=== PATIENT | male | born 1950 | race Hispanic/Latino ===

== ENCOUNTER 2020-07-24 10:54 | Day surgery (SDC) | payer OTHER ==
[2020-07-23 12:31] LABS: Absolute Lymphocytes (CBC) 2.4 K/uL (0.7-4.9); Basophils % 0.7 % (0-1.3); Hematocrit 38.6 % (39.6-49.0); Lymphocytes % 38.9 % (15.3-44.8); MPV 8.5 fL (7.6-11.3); RBC Red Blood Cell Count 4.16 M/uL (4.33-5.43)
--- NOTE | 2020-07-23 12:43 | RAD REPORT ---
EXAM DESCRIPTION: RAD - Chest Pa And Lat (2 Views) - 07/23/2020 12:33 pm CLINICAL HISTORY: PREOP, SAME DAY SURGERY, ROOM 7 Chest pain. COMPARISON: No comparisons FINDINGS: The lungs are clear. The heart is mildly prominent size. No displaced fractures.
[2020-07-24] MEDS ORDERED: NA CHLORIDE 0.9% 1,000 ML ONE (11:22)
[2020-07-24] MEDS ORDERED: CIPROFLOXACIN 400mg IV 400 MG/200 ML BAG IV ONE (11:22)
[2020-07-24] MEDS ORDERED: propofoL 200 MG/20 ML VIAL IV ONE (12:40)
[2020-07-24] MEDS ORDERED: MIDAZOLAM HCL 2 MG/2 ML INJ ONE (12:40)
[2020-07-24] MEDS ORDERED: FENTANYL CITR 100 MCG/2 ML ONE (12:41)
[2020-07-24] MEDS ORDERED: ONDANSETRON 4 MG/2 ML VIAL ONE (12:42)
[2020-07-24] MEDS ORDERED: EPHEDRINE SULF 50 MG/ML VIAL ONE (13:09)
--- NOTE | 2020-07-24 13:19 | P.BOP ---
Preoperative diagnosis: infected lower back subQ mass Postoperative diagnosis: same, plus abscess Primary procedure: Wide excision of infected lower back subQ mass 5x4 cm Secondary procedure: with abscess drainage Estimated blood loss: <10cc Specimen: mass Findings: mass and abscess Anesthesia: General Complications: None Transferred to: Recovery Room Condition: Good
[2020-07-24 13:32] VITALS: TEMP 96.8
[2020-07-24 15:11] VITALS: BP 118/75; O2SAT 99
--- NOTE | 2020-07-24 21:24 | OP ---
Date of Procedure: 07/24/2020 Surgeon: Scar New MD Preoperative Diagnosis: Infected lower back subcutaneous mass. Postoperative Diagnosis: Infected lower back subcutaneous mass plus abscess. Procedure: Wide excision of infected lower back subcutaneous mass, 5 x 4 cm, with drainage of an abs cess. Estimated Blood Loss: Less than 10 mL. Specimens: Mass. Findings: Mass and abscess. Anesthesia: General plus local. Indications: This is a case of a male who comes to us with a mass in the lower back, now a red, warm , and tender, infected lower back subcutaneous mass diagnosed with benefits, alternatives, and risks of excision and drainage of the infection fully explained which include, but not limited to infection , bleeding, damage to adjacent structures, anesthesia complication, recurrence, ME, and even . He also understands this may not relieve any symptoms. He might need more than one surgical interven tion. He understood, signed a consent. He understands that he may have to do home health agency to order at home somebody to do dressing changes. He want home health agencies, that was arranged [facility]. He understands he will need to do dressing changes. Description Of Procedure: The patient's area was marked by me and the patient in the holding room. The patient was brought to the operating room and placed in supine position. Anesthesia was done wit hout complication. The patient was placed in lateral decubitus position with proper protection. The lower back area was prepped and draped in sterile fashion. Local anesthesia was applied followed by wide excision of the infected area and devitalized tissue that get us into a mass and underneath the mass or deep to the mass, there is an abscess. Loculations were opened, mass was excised, and hemos tasis obtained. We irrigated the area and then packed with dry dressing. The patient tolerated the procedure well. The patient was sent to Recovery in stable condition. Disposition: Home. Activity: As tolerated. No heavy lifting. Plan: Follow up in my office in 1 week. Call for appointment at [phone]. The patient will continu e with his antibiotics. We are going to given him Tylenol No. 3 q.4 hours p.r.n. pain and normal ramandeep ine for dressing changes. CHANA/TRANG Voice ID: [id number] Report ID: [id number]
== END 2020-07-24 15:15 | disposition home or self-care (01) ==
LOC: OR 10:54
PROVIDERS: ATTEND Surgery
PROC: 0JB70ZZ Excision of Back Subcutaneous Tissue and Fascia, Open Approach (ICD-10-PCS; principal; 2020-07-24 13:45)
DX: L72.0 Epidermal cyst (principal); L03.312 Cellulitis of back [any part except buttock and flank]; E11.9 Type 2 diabetes mellitus without complications; G20 Parkinson's disease; G62.9 Polyneuropathy, unspecified; Z20.828 Contact with and (suspected) exposure to other viral communicable diseases
CPT/HCPCS: 93005; 87070; 85025; 80048; 36415; 87205; 82947 ×2; 88305; 87075; 71046; 11406; J2704; J2250; J3010; J7030; J2405; J0744; U0002

== ENCOUNTER 2023-05-18 19:54 | Emergency (ER) | payer OTHER ==
--- OUTSIDE RECORDS SUMMARY | 2023-05-18 20:00 | XMS REPORT | Continuity of Care Document ---
:[address] [facility] Address [address] [place] [address] [address] [place] [address] Care Team Providers Name Role Phone Asked, No Pcp Primary Care Physician Unavailable Evangelist Espana MD Attending Clinician EVANGELIST ESPANA Attending Clinician Unavailable Rustam Moreno MD Attending Clinician Monique Comer CRNA Attending Clinician [phone] Virtual, Surgeon Attending Clinician Unavailable Doctor Unassigned, [place] Attending Clinician Unavailable Jose Mariee Attending Clinician JOSE IVERSON Attending Clinician Unavailable EVANGELIST ESPANA Admitting Clinician Unavailable Payers Payer Name Policy Type Policy Number Effective Date Expiration Date S ource Problems Condition Condition Condition Status Onset Resolution Last Treating Co mments Source Name Details Category Date Date Treatment Clinician Date No known No known Disease Unive rs active active ity of problems problems [facility] Allergies, Adverse Reactions, Alerts Allergy Allergy Status Severity Reaction(s) Onset Inactive Treating Comm ents Source Name Type Date Date Clinician [facility] Allergy Active High Hives [facility] Drug Active Hives, [facility] Rash 00:[facility]: [facility] 00 Center [place] Drug Active Hives, [facility] Rash 00:[facility]: Medical 00 Center [place] DRUG Active Hives 1954- Univers IN INGREDI 4- ity of 00:00: [place] 00 Medical Branch [place] Propensi Active Rash 1954-0 Univer s in ty to -13 ity of adverse 00:00: [place] reaction 00 Medical s Branch NO KNOWN Drug Active Univers ALLERGIE Class ity of S [facility] Social History Social Habit Start Date Stop Date Quantity Comments Source History [facility] University o f Alcohol Std Drinks [place] [facility] Weyerhaeuser History On license of [facility] o f Alcohol Binge [place] [facility] Weyerhaeuser Gender identity [facility] Sexual orientation [facility] Alcohol intake 2022-09-27 2022-09-27 Ex-drinker [facility] 00:[facility]00 00:00:00 (finding) Medical Center Exposure to 2022-07-18 2022-07-[address] [facility] SARS-CoV-2 (event) 00:00:00 14:00[facility]00 [facility] Tobacco use and 2022-07-28 2022-07-[address] [facility] k[facility] exposure 00:00:00 00:00:00 tobacco non-user Medical Center History [facility] 2021-04-29 2021-04-29 1 University o f Alcohol Frequency 00:00:00 00:00:00 [facility] Sex Ass[birth year] At [birth year] [facility] Smoking Status Start Date Stop Date Source Tobacco smoking consumption unknown [facility] smoked [facility] Medications Ordered Filled Start Stop Current Ordering Indication Dosage Frequency Signature Comments Components Source Medication Medication Date Date Medication? Clinician (SIG) Name Name gabapentin Yes 300mg Q.5D Take [address] (NEURONTIN) 1-23 mg by [facility] 300 MG 14:59: mouth 2 Medical capsule 46 (two) Center times daily. metFORMIN Yes 750mg Q.5D Take [address] (GLUCOPHAGE 1-23 mg by [facility] -XR) 750 MG 14:59: mouth 2 Med ical 24 hr 46 (two) Center tablet times daily. montelukast Yes 10mg QD Take [address] (SINGULAIR) 1-23 by mouth Luke s 10 mg 14:59: daily. Medical tablet 46 Center omeprazole 0 Yes 40mg QD Take [address] (PriLOSEC) 1-23 by mouth [facility] 40 MG 14:59: daily. Medical capsule 46 [place] rosuvastati 0 Yes 5mg QD Take [address] n (CRESTOR) 1-23 by mouth Luke s 5 MG tablet 14:59: daily. [address] carbidopa-l 2022-0 Yes Q.25D Take by [facility] evodopa 1-23 mouth 4 [facility] (Rytary) 14:59: (four) Medical 36.25-145 46 times Center mg CpER daily. aspirin 81 0 Yes 81mg QD Take [address] MG EC 1-23 by mouth [facility] tablet 14:59: daily. [address] gabapentin 0 Yes 300mg Q.5D Take [address] (NEURONTIN) 1-23 mg by [facility] 300 MG 14:59: mouth 2 Medical capsule 46 (two) Center times daily. metFORMIN 0 Yes 750mg Q.5D Take [address] (GLUCOPHAGE 1-23 mg by [facility] -XR) 750 MG 14:59: mouth 2 Med ical 24 hr 46 (two) Center tablet times daily. montelukast 0 Yes 10mg QD Take [address] (SINGULAIR) 1-23 by mouth Luke s 10 mg 14:59: daily. Medical tablet 46 [place] omeprazole 0 Yes 40mg QD Take [address] (PriLOSEC) 1-23 by mouth [facility] 40 MG 14:59: daily. Medical capsule [address] [place] [address] rosuvastati 0 Yes 5mg QD Take [address] n (CRESTOR) 1-23 by mouth Luke s 5 MG tablet 14:59: daily. [address] carbidopa-l 2022-0 Yes Q.25D Take by [facility] evodopa 1-23 mouth 4 [facility] (Rytary) 14:59: (four) Medical 36.25-145 46 times Center mg CpER daily. aspirin 81 2022-0 Yes 81mg QD Take [address] MG EC 1-23 by mouth [facility] tablet 14:59: daily. [address] gabapentin 0 Yes 300mg Q.5D Take [address] (NEURONTIN) 1-23 mg by [facility] 300 MG 14:59: mouth 2 Medical capsule 46 (two) Center times daily. metFORMIN Yes 750mg Q.5D Take [address] (GLUCOPHAGE 1-23 mg by [facility] -XR) 750 MG 14:59: mouth 2 Med ical 24 hr 46 (two) Center tablet times daily. montelukast Yes 10mg QD Take [address] (SINGULAIR) 1-23 by mouth Luke s 10 mg 14:59: daily. Medical tablet 46 Center omeprazole Yes 40mg QD Take [address] (PriLOSEC) 1-23 by mouth [facility] 40 MG 14:59: daily. Medical capsule 46 [place] rosuvastati Yes 5mg QD Take [address] n (CRESTOR) 23 by mouth Luke s 5 MG tablet 14:59: daily. [facility] xochilt 46 [place] carbidopa-l Yes Q.25D Take by [facility] evodopa 11-28 mouth 4 [facility] (Rytary) 14:59: (four) Medical 36.25-145 46 times Center mg CpER daily. aspirin 81 Yes 81mg QD Take [address] MG EC 11-28 by mouth [facility] tablet 14:59: daily. [address] gabapentin 2021-11 Yes 300mg Q.5D Take [address] (NEURONTIN) 1-07 mg by [facility] 300 MG 09:43: mouth 2 Medical capsule 33 (two) Center times daily. metFORMIN 2021-11 Yes 750mg Q.5D Take [address] (GLUCOPHAGE 1-07 mg by [facility]ukes -XR) 750 MG 09:43: mouth 2 Med ical 24 hr 33 (two) Center tablet times daily. montelukast 2021-11 Yes 10mg QD Take [address] (SINGULAIR) 1-07 by mouth Luke s 10 mg 09:43: daily. Medical tablet 33 Center omeprazole 2021-11 Yes 40mg QD Take [address] (PriLOSEC) 1-07 by mouth [facility] 40 MG 09:43: daily. Medical capsule 33 [place] rosuvastati 2021-11 Yes 5mg QD Take [address] n (CRESTOR) 1-07 by mouth Luke s 5 MG tablet 09:43: daily. [address] carbidopa-l 2021-11 Yes Q.25D Take by [facility] evodopa 1-07 mouth 4 [facility] (Rytary) 09:43: (four) Medical 36.25-145 33 times Center mg CpER daily. aspirin 81 2021-11 Yes 81mg QD Take [address] MG EC 1-07 by mouth [facility] tablet 09:43: daily. [address] gabapentin 2021-11 Yes 300mg Q.5D Take [address] (NEURONTIN) 1-07 mg by [facility] 300 MG 09:43: mouth 2 Medical capsule 33 (two) Center times daily. metFORMIN 2021-11 Yes 750mg Q.5D Take [address] (GLUCOPHAGE 1-07 mg by [facility]ukes -XR) 750 MG 09:43: mouth 2 Med ical 24 hr 33 (two) Center tablet times daily. montelukast 2021-11 Yes 10mg QD Take [address] (SINGULAIR) 1-07 by mouth Luke s 10 mg 09:43: daily. Medical [address] omeprazole 2021-11 Yes 40mg QD Take [address] (PriLOSEC) 1-07 by mouth [facility] 40 MG 09:43: daily. Medical [address] rosuvastati 2021-11 Yes 5mg QD Take [address] n (CRESTOR) 1-07 by mouth Luke s 5 MG tablet 09:43: daily. [address] carbidopa-l 2021-11 Yes Q.25D Take by [facility] evodopa 1-07 mouth 4 [facility] (Rytary) 09:43: (four) Medical 36.25-145 33 times Center mg CpER daily. aspirin 81 2021-11 Yes 81mg QD Take [address] MG EC 1-07 by mouth [facility] tablet 09:43: daily. [address] gabapentin 2021-11 Yes 300mg Q.5D Take [address] (NEURONTIN) 1-07 mg by [facility] 300 MG 09:43: mouth 2 Medical capsule 33 (two) Center times daily. metFORMIN 2021-11 Yes 750mg Q.5D Take [address] (GLUCOPHAGE 1-07 mg by [facility]ukes -XR) 750 MG 09:43: mouth 2 Med ical 24 hr 33 (two) Center tablet times daily. montelukast 2021-11 Yes 10mg QD Take [address] (SINGULAIR) 1-07 by mouth Luke s 10 mg 09:43: daily. Medical tablet 33 [place] omeprazole 2021-11 Yes 40mg QD Take [address] (PriLOSEC) 1-07 by mouth [facility] 40 MG 09:43: daily. Medical capsule 33 [place] rosuvastati 2021-11 Yes 5mg QD Take [address] n (CRESTOR) 1-07 by mouth Luke s 5 MG tablet 09:43: daily. [address] carbidopa-l 2021-11 Yes Q.25D Take by [facility] evodopa -07 mouth 4 [facility] (Rytary) 09:43: (four) Medical 36.25-145 33 times Center mg CpER daily. aspirin 81 2021-11 Yes 81mg QD Take [address] MG EC 07 by mouth [facility] tablet 09:43: daily. [address] gabapentin Yes 300mg Q.5D Take [address] (NEURONTIN) 9-22 mg by [facility] 300 MG 17:18: mouth 2 Medical capsule 02 (two) Center times daily. metFORMIN Yes 750mg Q.5D Take [address] (GLUCOPHAGE 9-22 mg by [facility]ukes -XR) 750 MG 17:18: mouth 2 Med ical 24 hr 02 (two) Center tablet times daily. montelukast Yes 10mg QD Take [address] (SINGULAIR) 9-22 by mouth Luke s 10 mg 17:18: daily. Medical tablet 02 [place] omeprazole Yes 40mg QD Take [address] (PriLOSEC) 9-22 by mouth [facility] 40 MG 17:18: daily. Medical capsule [address] [place] [address] rosuvastati Yes 5mg QD Take [address] n (CRESTOR) 9-22 by mouth Luke s 5 MG tablet 17:18: daily. [address] carbidopa-l Yes Q.25D Take by [facility] evodopa 9-22 mouth 4 [facility] (Rytary) 17:18: (four) Medical 36.25-145 02 times Center mg CpER daily. aspirin 81 2021-0 Yes 81mg QD Take [address] MG EC 9-22 by mouth [facility] tablet 17:18: daily. [address] gabapentin 2021-0 Yes 300mg Q.5D Take [address] (NEURONTIN) 9-22 mg by [facility] 300 MG 17:18: mouth 2 Medical capsule 02 (two) Center times daily. metFORMIN 2021-0 Yes 750mg Q.5D Take [address] (GLUCOPHAGE 9-22 mg by Lukes -XR) 750 MG 17:18: mouth 2 Med ical 24 hr 02 (two) Center tablet times daily. montelukast 0 Yes 10mg QD Take [address] (SINGULAIR) 9-22 by mouth Luke s 10 mg 17:18: daily. Medical tablet 02 [place] omeprazole 0 Yes 40mg QD Take [address] (PriLOSEC) 9-22 by mouth [facility]ukes 40 MG 17:18: daily. Medical capsule [address] [place] [address] rosuvastati 0 Yes 5mg QD Take [address] n (CRESTOR) 9- by mouth Luke s 5 MG tablet 17:18: daily. Medi xochilt 02 [place] carbidopa-l 0 Yes Q.25D Take by [facility] evodopa 9- mouth 4 [facility] (Rytary) 17:18: (four) Medical 36.25-145 02 times Center mg CpER daily. aspirin 81 0 Yes 81mg QD Take [address] MG EC 9-22 by mouth [facility]ukes tablet 17:18: daily. [address] gabapentin 2021-0 Yes 300mg Q.5D Take [address] (NEURONTIN) 9-22 mg by [facility] 300 MG 17:18: mouth 2 Medical capsule 02 (two) Center times daily. metFORMIN 2021-0 Yes 750mg Q.5D Take [address] (GLUCOPHAGE 9-22 mg by [facility]ukes -XR) 750 MG 17:18: mouth 2 Med ical 24 hr 02 (two) Center tablet times daily. montelukast 0 Yes 10mg QD Take [address] (SINGULAIR) 9-22 by mouth Luke s 10 mg 17:18: daily. Medical tablet 02 Center omeprazole 2021-0 Yes 40mg QD Take [address] (PriLOSEC) 07-28 by mouth [facility] 40 MG 17:18: daily. Medical capsule 02 [place] rosuvastati Yes 5mg QD Take [address] n (CRESTOR) 07-28 by mouth Luke s 5 MG tablet 17:18: daily. Medi xochilt 02 [place] carbidopa-l Yes Q.25D Take by [facility] evodopa 07-28 mouth 4 [facility] (Rytary) 17:18: (four) Medical 36.25-145 02 times Center mg CpER daily. aspirin 81 Yes 81mg QD Take [address] MG EC 07-28 by mouth [facility] tablet 17:18: daily. [address] triamcinolo 2020- No [id number] 40mg Univers ne 04-29 ity of acetonide 17:30: 16:17 [place] (KENALOG) 00 :00 Medical injection Branch 40 mg triamcinolo 2020- No [id number] 40mg 40 mg, Univers ne 04-29 Intramuscu ity of acetonide 17:30: 16:17 [place], [place]CE, [place] (KE[place]LOG[place] 00 :00 1 dose, Medical injection Mary [facility] Branch 40 mg 04/29/21 at 1230, Routine triamcinolo 2020- No [id number] 40mg Univers ne 04-29 ity of acetonide 17:30: 16:17 [place] (KENALOG) 00 :00 Medical injection Branch 40 mg triamcinolo 2020- No [id number] 40mg 40 mg, Univers ne 04-29 Intramuscu ity of acetonide 17:30: 16:17 [place], [place]CE, [place] (KE[place]LOG) 00 :00 1 dose, Medical injection [facility] Branch 40 mg 04/29/21 at 1230, Routine carbidopa-l Yes Univer s evodopa 6-05 ity of 25-100 mg 00:00: [place] tablet 00 Medical Branch rosuvastati Yes Univer s n 5 mg 6-05 ity of tablet 00:00: [place] 00 [facility] Branch carbidopa-l Yes Univer s evodopa 6-05 ity of 25-100 mg 00:00: [place] tablet 00 Medical Branch rosuvastati 0 Yes Univer s n 5 mg 6-05 ity of tablet 00:00: [place] Medical Branch carbidopa-l 0 Yes Univer s evodopa 6-05 ity of 25-100 mg 00:00: [place] tablet Medical Branch rosuvastati 0 Yes Univer s n 5 mg 6-05 ity of tablet 00:00: [place] Medical Branch carbidopa-l 0 Yes Univer s evodopa 6-05 ity of 25-100 mg 00:00: [place] tablet 00 Medical Branch rosuvastati Yes Univer s n 5 mg 6-05 ity of tablet 00:00: [place] Medical Branch carbidopa-l Yes Univer s evodopa 6-05 ity of 25-100 mg 00:00: [place] tablet Medical Branch rosuvastati Yes Univer s n 5 mg 6-05 ity of tablet 00:00: [place] Medical Branch carbidopa-l 0 Yes Univer s evodopa 6-05 ity of 25-100 mg 00:00: [place] tablet Medical Branch rosuvastati 0 Yes Univer s n 5 mg 6-05 ity of tablet 00:00: [place] Medical Branch carbidopa-l 0 Yes [facility] s evodopa 6-05 ity of 25-100 mg 00:00: [place] tablet Medical Branch rosuvastati 2020-0 Yes Univer s n 5 mg 6-05 ity of tablet 00:00: [place] [facility] metformin 2020-0 Yes Univers ER 750 mg 5-09 ity of 24 hr 00:00: [place] tablet 00 Medical Branch metformin 2020-0 Yes Univers ER 750 mg 5-09 ity of 24 hr 00:00: [place] tablet Medical Branch metformin 2020-0 Yes Univers ER 750 mg 5-09 ity of 24 hr 00:00: [place] tablet Medical Branch metformin 2020-0 Yes Univers ER 750 mg 5-09 ity of 24 hr 00:00: [place] tablet 00 Medical Branch metformin 2020-0 Yes Univers ER 750 mg 5-09 ity of 24 hr 00:00: [place] tablet 00 Medical Branch metformin 2021-0 Yes Univers ER 750 mg 5-09 ity of 24 hr 00:00: [place] tablet 00 Medical Branch metformin 2021-0 Yes Univers ER 750 mg 5-09 ity of 24 hr 00:00: [place] tablet 00 Medical Branch omeprazole 2015-0 Yes Univers 40 mg 4-13 ity of capsule 00:00: [place] 00 Medical Branch gabapentin 2015-0 Yes Univers 300 mg 4-13 ity of capsule 00:00: [place] [facility] fluticasone 2015-0 Yes Univer s propionate 4-13 ity of 50 00:00: [facility] Medical on nasal Branch spray omeprazole 2015-0 Yes Univers 40 mg 4-13 ity of capsule 00:00: [place] [facility] gabapentin 2015-0 Yes Univers 300 mg 4-13 ity of capsule 00:00: [place] [facility] fluticasone 2015-0 Yes Univer s propionate 4-13 ity of 50 00:00: [facility] Medical on nasal Branch spray omeprazole 2015-0 Yes Univers 40 mg 4-13 ity of capsule 00:00: [place] [facility] gabapentin 2015-0 Yes Univers 300 mg 4-13 ity of capsule 00:00: [place] [facility] fluticasone 2015-0 Yes Univer s propionate 4-13 ity of 50 00:00: [facility] Medical on nasal Branch spray omeprazole 2015-0 Yes Univers 40 mg 4-13 ity of capsule 00:00: [place] 00 Medical Branch gabapentin 2015-0 Yes Univers 300 mg 4-13 ity of capsule 00:00: [place] [facility] fluticasone 2015-0 Yes Univer s propionate 4-13 ity of 50 00:00: [facility] Medical on nasal Branch spray omeprazole 2015-0 Yes Univers 40 mg 4-13 ity of capsule 00:00: [place] 00 Medical Branch gabapentin 2015-0 Yes Univers 300 mg 4-13 ity of capsule 00:00: [place] [facility] fluticasone 2015-0 Yes Univer s propionate 4-13 ity of 50 00:00: [facility] Medical on nasal Branch spray omeprazole 2015-0 Yes Univers 40 mg 4-13 ity of capsule 00:00: [place] 00 Medical Branch gabapentin 2015-0 Yes Univers 300 mg 4-13 ity of capsule 00:00: [place] [facility] fluticasone 0 Yes Univer s propionate 4-13 ity of 50 00:00: [place] mcg/actuati Medical on nasal Branch spray omeprazole Yes Univers 40 mg 4-13 ity of capsule 00:00: Medical Branch gabapentin 0 Yes Univers 300 mg 4-13 ity of capsule 00:00: Medical Branch fluticasone 0 Yes Univer s propionate 4-13 ity of 50 00:00: [place] mcg/actuati Medical on nasal Branch spray montelukast Yes Univer s 10 mg 4-13 ity of tablet 00:00: Medical Branch Cetirizine Yes Univers (ZYRTEC) 10 4-13 ity of mg capsule 00:00: Medical Branch montelukast Yes Univer s 10 mg 4-13 ity of tablet 00:00: Medical Branch Cetirizine Yes Univers (ZYRTEC) 10 4-13 ity of mg capsule 00:00: Medical Branch montelukast Yes Univer s 10 mg 4-13 ity of tablet 00:00: Medical Branch Cetirizine Yes Univers (ZYRTEC) 10 4-13 ity of mg capsule 00:00: Medical Branch montelukast Yes Univer s 10 mg 4-13 ity of tablet 00:00: Medical Branch Cetirizine Yes Univers (ZYRTEC) 10 4-13 ity of mg capsule 00:00: Medical Branch montelukast Yes Univer s 10 mg 4-13 ity of tablet 00:00: Medical Branch Cetirizine Yes Univers (ZYRTEC) 10 4-13 ity of mg capsule 00:00: Medical Branch montelukast Yes Univer s 10 mg 4-13 ity of tablet 00:00: Medical Branch Cetirizine Yes Univers (ZYRTEC) 10 4-13 ity of mg capsule 00:00: Medical Branch montelukast Yes Univer s 10 mg 4-13 ity of tablet 00:00: [address] Cetirizine 2012-0 Yes Univers (ZYRTEC) 10 4-13 ity of mg capsule 00:00: [address] Vital Signs Vital Name Observation Time Observation Value Comments Source HEIGHT 2022-07-28 14:00:00 170.2 cm WEIGHT 2022-07-28 14:00:00 74.39 kg HEIGHT 2022-07-28 14:00:00 170.2 cm WEIGHT 2022-07-28 14:00:00 74.39 kg HEIGHT 2022-07-27 10:00:00 170.2 cm WEIGHT 2022-07-27 10:00:00 74.617 kg HEIGHT 2022-07-27 10:00:00 170.2 cm WEIGHT 2022-07-27 10:00:00 74.617 kg HEIGHT 2022-07-27 09:44:00 170.2 cm WEIGHT 2022-07-27 09:44:00 74.98 kg HEIGHT 2022-07-27 09:44:00 170.2 cm WEIGHT 2022-07-27 09:44:00 74.98 kg Systolic blood 2021-04-29 14:59:00 127 mm[Hg] [facility] of [facility] Diastolic blood 2021-04-29 14:59:00 83 mm[Hg] Unive rsity of [facility] Heart rate 2021-04-29 14:59:00 77 /min [facility] Body height 2021-04-29 14:59:00 170.2 cm [facility] Body weight 2021-04-29 14:59:00 79.379 kg [facility] BMI 2021-04-29 14:59:00 27.41 kg/m2 [facility] Body height 2022-07-28 14:00:00 170.2 cm [facility] Body weight 2022-07-28 14:00:00 74.39 kg [facility] BMI 2022-07-28 14:00:00 25.69 kg/m2 [facility] Systolic blood 2022-07-27 16:35:00 129 mm[Hg] [facility] Diastolic blood 2022-07-27 16:35:00 72 mm[Hg] [facility] Heart rate 2022-07-27 16:35:00 63 /min [facility] Body temperature 2022-07-27 16:35:00 35.94 Kristine [facility] Respiratory rate 2022-07-27 16:35:00 18 /min [facility] Oxygen saturation in 2022-07-27 16:35:00 97 /min [facility] Arterial blood by Medical Ce ntalejandro Pulse oximetry Procedures Procedure Date / Time Performing Clinician Source Performed INSERTION, PULSE 2022-08-25 11:30:00 Alfredo, Evangelist [facility] Medical GENERATOR, DEEP BRAIN Center STIMULATOR, STAGE 2 ANALYSIS, 2022-08-25 11:30:00 Alfredo, [facility] NEUROSTIMULATOR, WITH Center PROGRAMMING PROCEDURE W/ C-ARM 2022-08-25 11:30:00 Alfredo, [facility] POCT-GLUCOSE METER 2022-08-25 10:29:00 [facility]SE 2022-08-25 08:01:00 Alfredo, Evangelist [facility] Medical GENERATOR, DEEP BRAIN Center STIMULATOR, STAGE 2 ANALYSIS, 2022-08-25 08:01:00 [facility], WITH Center PROGRAMMING PROCEDURE W/ C-ARM 2022-08-25 08:01:00 Alfredo, Evangelist [facility] POCT-GLUCOSE METER 2022-08-25 07:22:00 Alfredo, Evangelist [facility] POCT-GLUCOSE METER 2022-08-19 07:40:00 Alfredo, [facility] POCT-GLUCOSE METER 2022-08-18 17:00:00 Alfredo, [facility] POCT-GLUCOSE METER 2022-08-18 13:17:00 Alfredo, [facility] CT BRAIN - STEALTH 2022-08-18 13:11:00 Alfredo, Evangelist [facility] [place] FLUORO NON-SPECIFIC 2022-08-18 11:37:00 Alfredo, Evangelist [facility] UP TO 1 HOUR Center INSERTION, DEEP BRAIN 2022-08-18 07:22:00 Alfredo, Evangelist [facility] STIMULATOR, DOUBLE Center LEAD, STAGE 1, STEREOTACTIC PROCEDURE W/ C-ARM 2022-08-18 07:22:00 Alfredo, Evangelist [facility] PROCEDURE W/ JONO ROBOT 2022-08-18 07:22:00 Alfredo, Evangelist Ortega C [facility] MR BRAIN WITH & WITHOUT 2022-07-27 15:42:00 Alfredo, Evangelist Ortega C [facility] IV CONTRAST [place] POCT-GLUCOSE METER 2022-07-27 15:41:00 Alfredo, Evangelist [facility] CT BRAIN WITHOUT IV 2022-07-27 12:58:00 Alfredo, Evangelist [facility] CONTRAST [place] PROCEDURE, IN 2022-07-27 11:30:00 Virtual, Surgeon [facility] NON-OPERATING ROOM Center SETTING URINALYSIS W/ REFLEX 2022-07-27 09:42:00 [facility] CBC W/PLT COUNT & AUTO 2022-07-27 09:42:00 Alfredo, [facility] BASIC METABOLIC PANEL 2022-07-27 09:42:00 Alfredo, [facility] APTT 2022-07-27 09:42:00 Alfredo, [facility] PROTHROMBIN TIME/INR 2022-07-27 09:42:00 Alfredo, [facility] TYPE AND SCREEN, 2022-07-27 09:42:00 Alfredo, [facility] AUTOMATED Center CBC W/PLT COUNT & AUTO 2022-07-27 09:42:00 Alfredo, [facility] DIFFERENTIAL [place] XR CHEST 2 VIEWS 2022-07-27 09:35:00 Alfredo, [facility] REFERRAL- 2021-06-17 05:01:00 Doctor Unassigned, No [facility] [place] REQUEST/RESPONSE Name Medical Branch REFERRAL- 2021-05-26 05:01:00 Doctor Unassigned, No [facility] [place] REQUEST/RESPONSE Name Medical Branch REFERRAL- 2021-05-07 05:01:00 Doctor Unassigned, No [facility] [place] REQUEST/RESPONSE Name Medical Branch REFERRAL- 2021-05-04 05:01:00 Doctor Unassigned, No [facility] [place] REQUEST/RESPONSE Name Medical Branch XR SHOULDER 2+ VW 2021-04-29 15:46:17 Jose Iverson [facility] BILATERAL Medical Branch Plan of Care Planned Activity Planned Date Details Comments Source Future Scheduled 2023-07-[address] [facility] Test 00:00:00 [facility] r Screening (12+) [code = Tobacco Cessation Counseling and Screening (12+)] Future Scheduled 2023-07-[address] [facility] Test 00:00:00 [facility] Cent[facility] r Screening (12+) [code = Tobacco Cessation Counseling and Screening (12+)] Future Scheduled 2023-07-[address] [facility] Test 00:00:00 [facility]ing [facility] Medical Cente r Screening (12+) [code = Tobacco Cessation Counseling and Screening (12+)] Future Scheduled 2023-07-[address] [facility] Test 00:00:00 Counseling and Medical Cente r Screening (12+) [code = Tobacco Cessation Counseling and Screening (12+)] Future Scheduled 2023-07-[address] [facility] Test 00:00:00 Counseling and Medical Cente r Screening (12+) [code = Tobacco Cessation Counseling and Screening (12+)] Future Scheduled 2023-07-[address] [facility] Test 00:00:00 [facility]ing and Medical Cente r Screening (12+) [code = Tobacco Cessation Counseling and Screening (12+)] Future Scheduled 2023-07-[address] [facility] Test 00:00:00 (Season Ended) [code = [facility] INFLUENZA VACCINE (Season Ended)] Future Scheduled 2023-04-22 Screening for [facility] [facility] Test 11:32:04 malignant neoplasm of colon (procedure) [code = 057434883] Future Scheduled 2023-04-22 Screening for [facility] Test 11:32:04 malignant neoplasm of colon (procedure) [code = 175857470] Future Scheduled 2023-04-22 [facility]ACCINES ([facility] 11:32:04 of 2) [code = SHINGLES VACCINES (1 of 2)] Future Scheduled 2023-04-22 65[facility] 11:32:04 VACCINE (1 - PCV) [code = 65+ PNEUMOCOCCAL VACCINE (1 - PCV)] Future Scheduled 2023-04-22 [facility]INE [facility]:32:04 [code = INFLUENZA VACCINE] Future Scheduled 2023-04-22 Screening for [facility] Test 11:32:04 malignant neoplasm of colon (procedure) [code = 754377232] Future Scheduled 2023-04-22 Screening for [facility] Test 11:32:04 malignant neoplasm of colon (procedure) [code = 724418266] Future Scheduled 2023-04-22 Screening for [facility] Test 11:32:04 malignant neoplasm of colon (procedure) [code = 110810384] Future Scheduled 2023-04-22 COVID-19 [facility]INE (#[facility] 11:32:04 [code = COVID-19 VACCINE (#1)] Future Scheduled 2022-11-[address] [facility] Test 00:00:00 (12+) [code = Medical Center DEPRESSION SCREENING (12+)] Future Scheduled 2022-11-06 FALLS RISK SCREENING [facility] Test 00:00:00 [code = FALLS RISK Medical C enter SCREENING] Future Scheduled 2022-11-[address] [facility] Test 00:00:00 (12+) [code = Medical Center DEPRESSION SCREENING (12+)] Future Scheduled 2022-11-06 FALLS RISK SCREENING [facility] Test 00:00:00 [code = FALLS RISK Medical C enter SCREENING] Future Scheduled 2022-11-[address] [facility] Test 00:00:00 (12+) [code = Medical Center DEPRESSION SCREENING (12+)] Future Scheduled 2022-11-06 FALLS RISK SCREENING [facility] Test 00:00:00 [code = FALLS RISK Medical C enter SCREENING] Future Scheduled 2022-11-[address] [facility] Test 00:00:00 (12+) [code = Medical Center DEPRESSION SCREENING (12+)] Future Scheduled 2022-11-[address] [facility]CRE[facility] Test 00:00:00 [code = FALLS RISK Medical C enter SCREENING] Future Scheduled 2022-07-26 SHINGLES VACCINES (1 Met [facility] Test 08:12:47 of 2) [code = SHINGLES VACCINES (1 of 2)] Future Scheduled 2022-07-26 65+ [facility]CCAL [facility] 08:12:47 VACCINE (1 - PCV) [code = 65+ PNEUMOCOCCAL VACCINE (1 - PCV)] Future Scheduled 2022-07-26 INFLUENZA VACCINE [facility] Test 08:12:47 [code = INFLUENZA VACCINE] Future Scheduled 2022-07-26 HEPATITIS B VACCINES Met [facility] Test 08:12:47 (1 of 3 - 3-dose series) [code = HEPATITIS B VACCINES (1 of 3 - 3-dose series)] Future Scheduled 2022-07-26 COVID-19 VACCINE (#1) [facility] Test 08:12:47 [code = COVID-19 VACCINE (#1)] Future Scheduled 2022-07-26 COLONOSCOPY SCREENING [facility] Test 08:12:47 [code = COLONOSCOPY SCREENING] Future Scheduled 2022-07-26 SHINGLES VACCINES (1 [facility] Test 08:12:47 of 2) [code = SHINGLES VACCINES (1 of 2)] Future Scheduled 2022-07-26 65+ [facility]CCAL [facility] 08:12:47 VACCINE (1 - PCV) [code = 65+ PNEUMOCOCCAL VACCINE (1 - PCV)] Future Scheduled 2022-07-26 INFLUENZA VACCINE [facility] Test 08:12:47 [code = INFLUENZA VACCINE] Future Scheduled 2022-07-26 HEPATITIS B VACCINES [facility] Test 08:12:47 (1 of 3 - 3-dose series) [code = HEPATITIS B VACCINES (1 of 3 - 3-dose series)] Future Scheduled 2022-07-26 COVID-19 VACCINE (#1) [facility] Test 08:12:47 [code = COVID-19 VACCINE (#1)] Future Scheduled 2022-07-26 COVID-19 VACCINE (#1) [facility] Test 08:12:47 [code = COVID-19 VACCINE (#1)] Future Scheduled 2022-07-26 COLONOSCOPY SCREENING [facility] Test 08:12:47 [code = COLONOSCOPY SCREENING] Future Scheduled 2022-07-26 SHINGLES VACCINES (1 Met [facility] Test 08:12:47 of 2) [code = SHINGLES VACCINES (1 of 2)] Future Scheduled 2022-07-26 65[facility] 08:12:47 VACCINE (1 - PCV) [code = 65+ PNEUMOCOCCAL VACCINE (1 - PCV)] Future Scheduled 2022-07-26 [facility]ZA [facility]INE [facility] 08:12:47 [code = INFLUENZA VACCINE] Future Scheduled 2022-07-26 HEPATITIS B VACCINES [facility] Test 08:12:47 (1 of 3 - 3-dose series) [code = HEPATITIS B VACCINES (1 of 3 - 3-dose series)] Future Scheduled 2022-07-26 COLONOSCOPY SCREENING [facility] Test 08:12:47 [code = COLONOSCOPY SCREENING] Future Scheduled 2022-07-26 SHINGLES VACCINES (1 [facility] Test 08:12:47 of 2) [code = SHINGLES VACCINES (1 of 2)] Future Scheduled 2022-07-26 65+ [facility]OCCAL [facility] 08:12:47 VACCINE (1 - PCV) [code = 65+ PNEUMOCOCCAL VACCINE (1 - PCV)] Future Scheduled 2022-07-26 [facility]ZA [facility]INE [facility] 08:12:47 [code = INFLUENZA VACCINE] Future Scheduled 2022-07-26 HEPATITIS B VACCINES [facility] Test 08:12:47 (1 of 3 - 3-dose series) [code = HEPATITIS B VACCINES (1 of 3 - 3-dose series)] Future Scheduled 2022-07-26 COVID-19 VACCINE (#1) [facility] Test 08:12:47 [code = COVID-19 VACCINE (#1)] Future Scheduled 2022-07-26 COLONOSCOPY SCREENING [facility] Test 08:12:47 [code = COLONOSCOPY SCREENING] Future Scheduled 2022-07-07 INFLUENZA VACCINE (#1) [facility] 00:00:00 [code = INFLUENZA Medical Ce nter VACCINE (#1)] Future Scheduled 2022-07-07 INFLUENZA VACCINE (#1) [facility] 00:00:00 [code = INFLUENZA Medical Ce nter VACCINE (#1)] Future Scheduled 2022-07-07 INFLUENZA VACCINE (#1) [facility] Test 00:00:00 [code = INFLUENZA Medical Ce nter VACCINE (#1)] Future Scheduled 2022-07-07 INFLUENZA VACCINE (#1) [facility] 00:00:00 [code = INFLUENZA Medical Ce nter VACCINE (#1)] Future Scheduled 2022-07-07 INFLUENZA VACCINE (#1) [facility] 00:00:00 [code = INFLUENZA Medical Ce nter VACCINE (#1)] Future Scheduled 2022-07-07 INFLUENZA VACCINE (#1) [facility] 00:00:00 [code = INFLUENZA Medical Ce nter VACCINE (#1)] Future Scheduled 2022-07-07 INFLUENZA VACCINE (#1) [facility] 00:00:00 [code = INFLUENZA Medical Ce nter VACCINE (#1)] Future Scheduled 2022-07-07 INFLUENZA VACCINE (#1) [facility] 00:00:00 [code = INFLUENZA Medical Ce nter VACCINE (#1)] Future Scheduled 2021-11-[address] [facility] Test 00:00:00 (12+) [code = Medical Center DEPRESSION SCREENING (12+)] Future Scheduled 2021-11-06 F[address]S RISK SCREENING [facility] Test 00:00:00 [code = FALLS RISK Medical C enter SCREENING] Future Scheduled 2021-11-[address] [facility] Test 00:00:00 (12+) [code = Medical Center DEPRESSION SCREENING (12+)] Future Scheduled 2021-11-06 FALLS RISK SCREENING [facility] Test 00:00:00 [code = FALLS RISK Medical C enter SCREENING] Future Scheduled 2021-11-[address] [facility] Test 00:00:00 (12+) [code = Medical Center DEPRESSION SCREENING (12+)] Future Scheduled 2021-11-06 FALLS RISK SCREENING [facility] Test 00:00:00 [code = FALLS RISK Medical C enter SCREENING] Future Scheduled 2021-11-[address] [facility] Test 00:00:00 (12+) [code = Medical Center DEPRESSION SCREENING (12+)] Future Scheduled 2021-11-06 FALLS RISK SCREENING [facility] Test 00:00:00 [code = FALLS RISK Medical C enter SCREENING] Future Scheduled 2021-11-[address] [facility] Test 00:00:00 (12+) [code = Medical Center DEPRESSION SCREENING (12+)] Future Scheduled 2021-11-06 FALLS RISK SCREENING [facility] Test 00:00:00 [code = FALLS RISK Medical C enter SCREENING] Future Scheduled 2016-02-[address] [facility] 00:00:00 WELLNESS (YEAR 2 or Medical Center FIRST YEAR if no IPPE) [code = MEDICARE ANNUAL WELLNESS (YEAR 2 or FIRST YEAR if no IPPE)] Future Scheduled 2016-02-[address] [facility] 00:00:00 WELLNESS (YEAR 2 or Medical Center FIRST YEAR if no IPPE) [code = MEDICARE ANNUAL WELLNESS (YEAR 2 or FIRST YEAR if no IPPE)] Future Scheduled 2016-02-[address] [facility] 00:00:00 WELLNESS (YEAR 2 or Medical Center FIRST YEAR if no IPPE) [code = MEDICARE ANNUAL WELLNESS (YEAR 2 or FIRST YEAR if no IPPE)] Future Scheduled 2016-02-[address] [facility] 00:00:00 WELLNESS (YEAR 2 or Medical Center FIRST YEAR if no IPPE) [code = MEDICARE ANNUAL WELLNESS (YEAR 2 or FIRST YEAR if no IPPE)] Future Scheduled 2016-02-[address] [facility] 00:00:00 WELLNESS (YEAR 2 or Medical Center FIRST YEAR if no IPPE) [code = MEDICARE ANNUAL WELLNESS (YEAR 2 or FIRST YEAR if no IPPE)] Future Scheduled 2016-02-[address] [facility] 00:00:00 WELLNESS (YEAR 2 or Medical Center FIRST YEAR if no IPPE) [code = MEDICARE ANNUAL WELLNESS (YEAR 2 or FIRST YEAR if no IPPE)] Future Scheduled 2016-02-[address] [facility] 00:00:00 WELLNESS (YEAR 2 or Medical Center FIRST YEAR if no IPPE) [code = MEDICARE ANNUAL WELLNESS (YEAR 2 or FIRST YEAR if no IPPE)] Future Scheduled 2016-02-[address] [facility] 00:00:00 WELLNESS (YEAR 2 or Medical Center FIRST YEAR if no IPPE) [code = MEDICARE ANNUAL WELLNESS (YEAR 2 or FIRST YEAR if no IPPE)] Future Scheduled 2016-02-[address] [facility] 00:00:00 WELLNESS (YEAR 2 or Medical Center FIRST YEAR if no IPPE) [code = MEDICARE ANNUAL WELLNESS (YEAR 2 or FIRST YEAR if no IPPE)] Future Scheduled 2015 PNEUMOCOCCAL 65+ YRS [facility] Test 00:00:00 (1 - PCV) [code = Medical Ce nter PNEUMOCOCCAL 65+ YRS (1 - PCV)] Future Scheduled 2015 PNEUMOCOCCAL 65+ YRS [facility] Test 00:00:00 (1 - PCV) [code = Medical Ce nter PNEUMOCOCCAL 65+ YRS (1 - PCV)] Future Scheduled 2015 PNEUMOCOCCAL 65+ YRS [facility] Test 00:00:00 (1 - PCV) [code = Medical Ce nter PNEUMOCOCCAL 65+ YRS (1 - PCV)] Future Scheduled 2015 PNEUMOCOCCAL 65+ YRS [facility] Test 00:00:00 (1 - PCV) [code = Medical Ce nter PNEUMOCOCCAL 65+ YRS (1 - PCV)] Future Scheduled 2015 PNEUMOCOCCAL 65+ YRS [facility] Test 00:00:00 (1 - PCV) [code = Medical Ce nter PNEUMOCOCCAL 65+ YRS (1 - PCV)] Future Scheduled 2015 PNEUMOCOCCAL 65+ YRS [facility] Test 00:00:00 (1 - PCV) [code = Medical Ce nter PNEUMOCOCCAL 65+ YRS (1 - PCV)] Future Scheduled 2015 [address]NE[address]OCOCCAL 65+ YRS [facility] Test 00:00:00 (1 - PCV) [code = Medical Ce nter PNEUMOCOCCAL 65+ YRS (1 - PCV)] Future Scheduled 2015 PNEUMOCOCCAL 65+ YRS [facility] Test 00:00:00 (1 - PCV) [code = Medical Ce nter PNEUMOCOCCAL 65+ YRS (1 - PCV)] Future Scheduled 2015 [address]NEUMOCOCCAL 65+ YRS [facility] Test 00:00:00 (1 - PCV) [code = Medical Ce nter PNEUMOCOCCAL 65+ YRS (1 - PCV)] Future Scheduled 2000-02-17 SHINGLES VACCINES ([address] [facility] Test 00:00:00 of 2) [code = SHINGLES Medic al Center VACCINES (1 of 2)] Future Scheduled 2000-02-17 SHINGLES VACCINES ([address] [facility] Test 00:00:00 of 2) [code = SHINGLES Medic al Center VACCINES (1 of 2)] Future Scheduled 2000-02-17 SHINGLES VACCINES ([address] [facility] Test 00:00:00 of 2) [code = SHINGLES Medic al Center VACCINES (1 of 2)] Future Scheduled 2000-02-17 SHINGLES VACCINES ([address] [facility] Test 00:00:00 of 2) [code = SHINGLES Medic al Center VACCINES (1 of 2)] Future Scheduled 2000-02-17 SHINGLES VACCINES ([address] [facility] Test 00:00:00 of 2) [code = SHINGLES Medic al Center VACCINES (1 of 2)] Future Scheduled 2000-02-17 SHINGLES VACCINES ([address] [facility] Test 00:00:00 of 2) [code = SHINGLES Medic al Center VACCINES (1 of 2)] Future Scheduled 2000-02-17 SHINGLES VACCINES ([address] [facility] Test 00:00:00 of 2) [code = SHINGLES Medic al Center VACCINES (1 of 2)] Future Scheduled 2000-02-17 SHINGLES VACCINES ([address] [facility] Test 00:00:00 of 2) [code = SHINGLES Medic al Center VACCINES (1 of 2)] Future Scheduled 2000-02-17 SHINGLES VACCINES ([address] [facility] Test 00:00:00 of 2) [code = SHINGLES Medic al Center VACCINES (1 of 2)] Future Scheduled 1969 DTAP/TDAP/TD [facility]INES [facility] 00:00:00 (1 - Tdap) [code = Medical C enter DTAP/TDAP/TD VACCINES (1 - Tdap)] Future Scheduled 1969 DTAP/TDAP/TD [facility]ACCINES [facility] 00:00:00 (1 - Tdap) [code = Medical C enter DTAP/TDAP/TD VACCINES (1 - Tdap)] Future Scheduled 1969 DTAP/TDAP/TD [facility]ACCINES [facility] 00:00:00 (1 - Tdap) [code = Medical C enter DTAP/TDAP/TD VACCINES (1 - Tdap)] Future Scheduled 1969 DTAP/TDAP/TD [facility]ACCINES [facility] 00:00:00 (1 - Tdap) [code = Medical C enter DTAP/TDAP/TD VACCINES (1 - Tdap)] Future Scheduled 1969 DTAP/TDAP/TD [facility]ACCINES [facility] 00:00:00 (1 - Tdap) [code = Medical C enter DTAP/TDAP/TD VACCINES (1 - Tdap)] Future Scheduled 1969 DTAP/TDAP/TD [facility]ACCINES [facility] 00:00:00 (1 - Tdap) [code = Medical C enter DTAP/TDAP/TD VACCINES (1 - Tdap)] Future Scheduled 1969 DTAP/TDAP/TD [facility]ACCINES [facility] 00:00:00 (1 - Tdap) [code = Medical C enter DTAP/TDAP/TD VACCINES (1 - Tdap)] Future Scheduled 1969 DTAP/TDAP/TD [facility]ACCINES [facility] 00:00:00 (1 - Tdap) [code = Medical C enter DTAP/TDAP/TD VACCINES (1 - Tdap)] Future Scheduled 1969 DTAP/TDAP/TD [facility]ACCINES [facility] 00:00:00 (1 - Tdap) [code = Medical C enter DTAP/TDAP/TD VACCINES (1 - Tdap)] Future Scheduled 1968-02-17 HEPATITIS C [facility]CRE[facility]00 [code = HEPATITIS C Medical Center SCREENING] Future Scheduled 1968-02-17 HEPATITIS C [facility] 00:00:00 [code = HEPATITIS C Medical Center SCREENING] Future Scheduled 1968-02-17 HEPATITIS C [facility]ING [facility] 00:00:00 [code = HEPATITIS C Medical Center SCREENING] Future Scheduled 1968-02-17 HEPATITIS C [facility] 00:00:00 [code = HEPATITIS C Medical Center SCREENING] Future Scheduled 1968-02-17 HEPATITIS C [facility] 00:00:00 [code = HEPATITIS C Medical Center SCREENING] Future Scheduled 1968-02-17 HEPATITIS C [facility]ING [facility] 00:00:00 [code = HEPATITIS C Medical Center SCREENING] Future Scheduled 1968-02-17 HEPATITIS C [facility]ING [facility] 00:00:00 [code = HEPATITIS C Medical Center SCREENING] Future Scheduled 1968-02-17 HEPATITIS C [facility] 00:00:00 [code = HEPATITIS C Medical Center SCREENING] Future Scheduled 1968-02-17 HEPATITIS C [facility] 00:00:00 [code = HEPATITIS C Medical Center SCREENING] Future Scheduled 1950 COVID-19 VACCINE (#1[facility]:00 [code = COVID-[address] VACCINE (#1)] Future Scheduled 1950 COVID-19 VACCINE (#1) [facility] 00:00:00 [code = COVID-[address] VACCINE (#1)] Future Scheduled 1950 COVID-19 VACCINE (#1) [facility] 00:00:00 [code = COVID-[address] VACCINE (#1)] Future Scheduled 1950 COVID-19 VACCINE (#1) [facility] 00:00:00 [code = COVID-[address] VACCINE (#1)] Future Scheduled 1950 COVID-19 VACCINE (#1) [facility] 00:00:00 [code = COVID-[address] VACCINE (#1)] Future Scheduled 1950 COVID-19 VACCINE (#1) [facility] 00:00:00 [code = COVID-[address] VACCINE (#1)] Future Scheduled 1950 COVID-19 VACCINE (#1) [facility] 00:00:00 [code = COVID-[address] VACCINE (#1)] Future Scheduled 1950 COVID-19 VACCINE (#1) [facility] 00:00:00 [code = COVID-[address] VACCINE (#1)] Future Scheduled 1950 COVID-19 VACCINE (#1) [facility] 00:00:00 [code = COVID-[address] VACCINE (#1)] Future Scheduled [address] [facility] 00:00:00 (combo) [code = CT Medical C enter Colonography (combo)] Future Scheduled [address] [facility] 00:00:00 malignant neoplasm of [facility] Center colon (procedure) [code = 081754315] Future Scheduled [address] [facility] 00:00:00 malignant neoplasm of [facility] Center colon (procedure) [code = 947024305] Future Scheduled [address] [facility] 00:00:00 malignant neoplasm of [facility] Center colon (procedure) [code = 574122306] Future Scheduled [address] [facility] 00:00:00 malignant neoplasm of [facility] Center colon (procedure) [code = 568097644] Future Scheduled 1950 Sigmoidoscopy [facility]] [facility] Cent[facility] Future Scheduled [address] [facility] 00:00:00 (combo) [code = CT Medical C enter Colonography (combo)] Future Scheduled [address] [facility] 00:00:00 malignant neoplasm of [facility] Center colon (procedure) [code = 902693896] Future Scheduled [address] [facility] 00:00:00 malignant neoplasm of [facility] Center colon (procedure) [code = 269943320] Future Scheduled [address] [facility] 00:00:00 malignant neoplasm of [facility] Center colon (procedure) [code = 718042166] Future Scheduled [address] [facility] 00:00:00 malignant neoplasm of [facility] Center colon (procedure) [code = 548292664] Future Scheduled 1950 S[facility]oidoscopy [facility]] [facility] Cent[facility] Future Scheduled [address] [facility] 00:00:00 (combo) [code = CT Medical C enter Colonography (combo)] Future Scheduled [address] [facility] 00:00:00 malignant neoplasm of [facility] Center colon (procedure) [code = 531682753] Future Scheduled [address] [facility] 00:00:00 malignant neoplasm of [facility] Center colon (procedure) [code = 627235084] Future Scheduled [address] [facility] 00:00:00 malignant neoplasm of [facility] Center colon (procedure) [code = 235414575] Future Scheduled [address] [facility] 00:00:00 malignant neoplasm of [facility] Center colon (procedure) [code = 488672539] Future Scheduled 1950 S[facility]oidoscopy [facility] [address] [facility] 00:00:00 (combo) [code = CT Medical C enter Colonography (combo)] Future Scheduled [address] [facility] 00:00:00 malignant neoplasm of [facility] Center colon (procedure) [code = 619572909] Future Scheduled [address] [facility] 00:00:00 malignant neoplasm of [facility] Center colon (procedure) [code = 883502011] Future Scheduled [address] [facility] 00:00:00 malignant neoplasm of [facility] Center colon (procedure) [code = 813042439] Future Scheduled [address] [facility] 00:00:00 malignant neoplasm of [facility] Center colon (procedure) [code = 006672347] Future Scheduled 1950 Sigmoidoscopy [facility] [address] [facility] 00:00:00 (combo) [code = CT Medical C enter Colonography (combo)] Future Scheduled [address] [facility] 00:00:00 malignant neoplasm of [facility] Center colon (procedure) [code = 014474172] Future Scheduled [address] [facility] 00:00:00 malignant neoplasm of [facility] Center colon (procedure) [code = 252112571] Future Scheduled [address] [facility] 00:00:00 malignant neoplasm of [facility] Center colon (procedure) [code = 782976730] Future Scheduled [address] [facility] 00:00:00 malignant neoplasm of [facility] Center colon (procedure) [code = 649662049] Future Scheduled 1950 Sigmoidoscopy [facility]] [facility] Cent[facility] Future Scheduled [address] [facility] 00:00:00 (combo) [code = CT Medical C enter Colonography (combo)] Future Scheduled [address] [facility] 00:00:00 malignant neoplasm of [facility] Center colon (procedure) [code = 595719080] Future Scheduled [address] [facility] 00:00:00 malignant neoplasm of [facility] Center colon (procedure) [code = 409349135] Future Scheduled [address] [facility] 00:00:00 malignant neoplasm of [facility] Center colon (procedure) [code = 747770074] Future Scheduled [address] [facility] 00:00:00 malignant neoplasm of [facility] Center colon (procedure) [code = 536443613] Future Scheduled 1950 S[facility]oidoscopy [facility]] [facility] Cent[facility] Future Scheduled [address] [facility] 00:00:00 (combo) [code = CT Medical C enter Colonography (combo)] Future Scheduled [address] [facility] 00:00:00 malignant neoplasm of [facility] Center colon (procedure) [code = 432332870] Future Scheduled [address] [facility] 00:00:00 malignant neoplasm of [facility] Center colon (procedure) [code = 313508541] Future Scheduled [address] [facility] 00:00:00 malignant neoplasm of [facility] Center colon (procedure) [code = 523076172] Future Scheduled [address] [facility] 00:00:00 malignant neoplasm of [facility] Center colon (procedure) [code = 541453378] Future Scheduled 1950 S[facility]oidoscopy [facility]] [facility] Cent[facility] Future Scheduled [address] [facility] 00:00:00 (combo) [code = CT Medical C enter Colonography (combo)] Future Scheduled [address] [facility] 00:00:00 malignant neoplasm of [facility] Center colon (procedure) [code = 205980157] Future Scheduled [address] [facility] 00:00:00 malignant neoplasm of [facility] Center colon (procedure) [code = 530290635] Future Scheduled [address] [facility] 00:00:00 malignant neoplasm of [facility] Center colon (procedure) [code = 034470642] Future Scheduled [address] [facility] 00:00:00 malignant neoplasm of [facility] Center colon (procedure) [code = 028163036] Future Scheduled 1950 S[facility]oidoscopy [facility]] Medical Cent[facility] Future Scheduled [address] [facility] 00:00:00 (combo) [code = CT Medical C enter Colonography (combo)] Future Scheduled [address] [facility] 00:00:00 malignant neoplasm of [facility] Center colon (procedure) [code = 822802971] Future Scheduled [address] [facility] 00:00:00 malignant neoplasm of [facility] Center colon (procedure) [code = 868287728] Future Scheduled [address] [facility] 00:00:00 malignant neoplasm of [facility] Center colon (procedure) [code = 144471904] Future Scheduled [address] [facility] 00:00:00 malignant neoplasm of [facility]ica [facility] Center colon (procedure) [code = 832656663] Future Scheduled 1950 S[facility]oidoscopy [facility]] Medical Valdo r Encounters Start End Encounter Admission Attending Care Care Encounter Source Date/Time Date/Time Type Type Clinicians Facility Department ID 2022-08-25 2022-08-25 [facility] [id number] 08:15:00 18:00:00 Encounter [facility] 2022-08-25 2022-08-25 Outpatient KEYSHA ESPANA [facility] [id number] [facility] 08:15:00 18:00:00 [facility]ANGELIST 2022-08-25 2022-08-25 [facility] [id number] 08:15:00 09:50:00 Evangelist [facility] 2022-08-18 2022-08-19 [facility] [id number] 07:30:00 11:29:00 Encounter [facility] 2022-08-18 2022-08-19 Inpatient KEYSHA ESPANA [facility] Surgery [id number] [facility] 07:30:00 11:29:00 EVANGELIST 2022-08-18 2022-08-18 [facility] [id number] 07:30:00 12:00:00 [facility] 2022-07-28 2022-07-28 [facility] [id number] 13:59:55 23:59:00 Encounter [facility] 2022-07-28 2022-07-28 Outpatient EL [facility] SLE [id number] [facility] 13:59:55 23:59:00 2022-07-28 2022-07-28 [facility] [id number] 13:59:15 23:59:00 Encounter [facility] 2022-07-28 2022-07-28 Outpatient KEYSHA ESPANA [facility] [id number] SLE 13:59:15 23:59:00 EVANGELIST 2022-07-28 2022-07-28 [facility] [id number] [facility] 00[facility] 00:00:00 [facility] 2022-07-27 2022-07-27 [facility] [id number] 10:11:57 23:59:00 Encounter [facility] 2022-07-27 2022-07-27 Outpatient PAVAN DURAN SLE [id number] [facility] 10:11:57 23:59:00 EVANGELIST 2022-07-27 2022-07-27 [facility] [id number] 10:06:00 17:18:00 Encounter [facility] 2022-07-27 2022-07-27 Outpatient KEYSHA ESPANA SLE Surgery [id number] [facility] 10:06:00 17:18:00 EVANGELIST 2022-07-27 2022-07-27 Anesthesia Rustam Moreno [facility] [id number] [facility] 13:26:00 15:34:00 Event Monique Com[facility] 2022-07-27 2022-07-27 Surgery [facility], [facility] [id number] 11:30:00 13:30:00 Surgeon [facility] 2022-07-27 2022-07-27 Outpatient DEX DURAN SLE [id number] SLE 10:11:46 10:11:46 EVANGELIST 2022-07-27 2022-07-27 Outpatient EL SLELayton SLE [id number] [facility] 09:32:55 10:05:00 2022-07-27 2022-07-27 [facility] [id number] 09:30:00 10:05:00 Encounter [facility] 2022-07-27 2022-07-27 [facility] [id number] 08:57:09 09:29:00 Encounter [facility] 2022-07-27 2022-07-27 Outpatient PAVAN DURAN SLE [id number] [facility] 08:57:09 09:29:00 EVANGELIST 2022-07-27 2022-07-27 Outpatient EL SLEH SLEH [id number] [facility] 08:57:57 08:57:57 2022-07-27 2022-07-27 [facility] [id number] [facility] 00:[facility] 00:00:00 [facility] 2022-07-27 2022-07-27 Orders Alfredo [facility] [id number] 00:00:00 00:00:00 Only [facility] 2022-06-08 2022-06-08 Outside Alfredo [facility] [id number] 00:00:00 00:00:00 Orders [facility] 2021-06-17 2021-06-17 Orders Doctor TANNA 1.2.840.114 [id number] Univers 00:00:00 00:00:00 Only Unassigned, POLI 350.1.13.10 [facility] 4.2.7.2.686 Aguila [place] [id number] [place] [address] [address] 2021-05-26 2021-05-26 Orders Doctor CISSE 1.2.840.114 [id number] [facility] 00:00:00 00:00:00 Only Unassigned, POLI 350.1.13.10 [facility] 4.2.7.2.686 Aguila as [phone] [place] [address] [address] 2021-05-07 2021-05-07 Orders Doctor CISSE 1.2.840.114 [id number] Univers 00:00:00 00:00:00 Only Unassigned, POLI 350.1.13.10 [facility] 4.2.7.2.686 Aguila as [phone] [place] [address] [place] 2021-05-04 2021-05-04 Orders Doctor CISSE 1.2.840.114 [id number] [facility] 00:00:00 00:00:00 Only Unassigned, POLI 350.1.13.10 [facility] 4.2.7.2.686 Aguila as [phone] [place] [address] [place] 2021-04-29 2021-04-29 [facility] HIRAM Iverson 1.2.840.114 [id number] [facility] 10:46:16 23:59:00 Encounter [facility] 350.1.13.10 ity of Surgical 4.2.7.2.686 Aguila as Specialti [id number] Me dical es 809 [facility] 2021-04-29 2021-04-29 Office aZyra [facility] 1.2.840.114 [id number] Univers 09:47:30 11:37:49 Visit [facility] 350.1.13.10 it y of Surgical 4.2.7.2.686 Aguila as Specialti [phone] Me dical es 198 [facility] 2021-04-29 2021-04-29 Outpatient R [facility] [id number] Univers 09:30:00 09:30:00 [facility] Results Test Description Test Time Test Comments Results Result Comments Source POC-Glucose meter 2022-08-26 16:03:24 Test Item Value Reference Range Interpretation Comme nts POC-Glucose Meter (test code = 163 mg/dL 70-110 H : TESTED AT [address] 1538) [facility], [facility] 30: Tour Actor/Techni nura ID = [id number] for SINGH, CAN DACE Lab Interpretation (test code = Abnormal 74880-6) [facility]-Glucose [id number] 16:03:24 Test Item Value Reference Range Interpretation Comments POC-Glucose Meter (test 163 mg/dL 70-110 H : TE STED AT [facility] code = 1538) [address] [place] [address], [facility] 30: Tour Actor/Techni nura ID = [id number] for SINGH, CAN DACE Lab Interpretation (test Abnormal code = 74537-7) [facility] [id number] 16:03:24 Test Item Value Reference Range Interpretation Comments POC-Glucose Meter (test 163 mg/dL 70-110 H : TE STED AT [facility] code = 1538) [address] [place] [address], [facility] 30: Tour Actor/Techni nura ID = [id number] for SINGH, CAN DACE Lab Interpretation (test Abnormal code = 36163-1) [facility]-Glucose [id number] 16:03:24 Test Item Value Reference Range Interpretation Comments POC-Glucose Meter (test 163 mg/dL 70-110 H : TE STED AT [facility] code = 1538) [address] [facility], 770 30: Tour Actor/Techni nura ID = [id number] for SINGH, CAN DACE Lab Interpretation (test Abnormal code = 50976-5) [facility]-Glucose [id number] 16:03:24 Test Item Value Reference Range Interpretation Comments POC-Glucose Meter (test 163 mg/dL 70-110 H : TE STED AT [facility] code = 1538) [address] [place] [address], 770 30: Tour Actor/Techni nura ID = [id number] for SINGH, CAN DACE Lab Interpretation (test Abnormal code = 22643-3) [facility]-Glucose [id number] 16:03:24 Test Item Value Reference Range Interpretation Comments POC-Glucose Meter (test 163 mg/dL 70-110 H : TE STED AT [facility] code = 1538) [address] [place] [address], 770 30: Tour Actor/Techni nura ID = [id number] for SINGH, CAN DACE Lab Interpretation (test Abnormal code = 12289-5) [facility]-Glucose [id number] 16:03:24 Test Item Value Reference Range Interpretation Comments POC-Glucose Meter (test 163 mg/dL 70-110 H : TE STED AT [facility] code = 1538) [address] [place] [address], 770 30: Tour Actor/Techni nura ID = [id number] for SINGH, CAN DACE Lab Interpretation (test Abnormal code = 70968-8) [facility]-Glucose [id number] 16:03:24 Test Item Value Reference Range Interpretation Comments POC-Glucose Meter (test 163 mg/dL 70-110 H : TE STED AT [facility] code = 1538) [address] [place] [address], 770 30: Tour Actor/Techni nura ID = [id number] for SINGH, CAN DACE Lab Interpretation (test Abnormal code = 48857-0) [facility] [id number] 16:03:24 Test Item Value Reference Range Interpretation Comments POC-GLUCOSE METER 163 mg/dL 70-110 H : TESTED A T [facility] 6720 (BEAKER) (test code = [facility] Rose [facility], 1538) [address]: Tour Actor/Techni nura ID = [id number] for ARAVIND SINGH POCT-GLUCOSE [id number] 15:57:03 Test Item Value Reference Range Interpretation Comments POC-GLUCOSE METER 124 mg/dL 70-110 H : TESTED A T [facility] 6720 ([facility]) (test code = [facility], 1538) [address]: Tour Actor/Techni nura ID = [id number] for ED WARDS, TEODORO POCT-GLUCOSE [id number] 10:59:16 Test Item Value Reference Range Interpretation Comments POC-GLUCOSE METER 137 mg/dL 70-110 H : TESTED A T [facility] 6720 ([facility]) (test code = [facility], 1538) [address]: Tour Actor/Techni nura ID = [id number] for JESSICA GUTIERREZ, MALIK POCT-GLUCOSE [id number] 10:31:15 Test Item Value Reference Range Interpretation Comments POC-GLUCOSE METER 235 mg/dL 70-110 H : TESTED A T [facility] 6720 ([facility]) (test code = [facility], 1538) [address]47: Tour Actor/Techni nura ID = [id number] for BRANDI BADILLO, CJ POCT-GLUCOSE [id number] 10:22:53 Test Item Value Reference Range Interpretation Comments POC-GLUCOSE METER 157 mg/dL 70-110 H : TESTED A T [facility] 6720 ([facility]) (test code = [facility], 1538) 14117: Tour Actor/Techni nura ID = [id number] for Adalid Roger CT, BRAIN, [id number] 13:31:00performing during downtime [facility] : 1950 Sex: MFINAL REPORT CT, BRAIN, STEALTH CLINICAL INDICATION: post dbs COMPARISON: 07/27/22 TECHNIQUE: Noncontrast axial CT imaging of the brain and skull. DOSE REDUCTION: Dose modulation, iterative reconstruction, and/or weight- based adjustment of the mA/kV was utilized to reduce the radiation dose to as low as reasonably achievable. FINDINGS: Interval placement of bilateral frontal approachdeep brain stimulator leads, which terminates near the subthalamic nuclei. Trace postoperative pneumocephalus is noted. No hydrocephalus. Orbits are within normal limits. No obstructive paranasal sinusdisease. IMPRESSION: Expected postoperative appearance status post placement of bilateral frontal mike albright deep brain stimulator leads. If there is persistent clinical concern for intracranial pathology, MR examination is recommended for further characterization. Signed: Chaitanya Yatesort Verified Date/Time: 08/18/2022 13:31:17 Reading Location: [address] Reading Room FL, FLUORO, NON-SPECIFIC, UP TO 1 [id number] 11:37:00downtime order for 08/18 [facility][id number] : 1950 Sex: MAnimaging unit was utilized for this procedure. No radiologist interpretation was requested. Refer to the EMR for findings. Refer to PACS for any patient radiation dose information.MR, BRAIN, [id number] 09:35:00DEEP BRAIN STIMULATION PLANNING PROTOCOL ON 3T WITH GENERAL ANESTHESIA.DEEP BRAIN STIMULATION PLANNING PROTOCOL ON 3T WITH GENERAL ANESTHESIA.Unlisted Reason for Exam - Click Yes and Enter Reason Below->YesUnlisted Reason for Exam->G20 [facility] : 1950 Sex: MFINAL REPORT MRI Brain with and without contrast Clinical History: Unlisted Reasonfor ExamG20 Technique: [facility] protocol MRI of the brain utilizing multiplanar, multisequence imaging with and without gadolinium. Comparisons: CT 07/27/2022 Findings: There is no abnormal intracranial enhancement or mass. There is no evidence of acute infarct or hemorrhage. There is nonspecific white matter disease. There is generalized parenchymal volume loss without hydrocephalus, midline shift, or apparent mass effect. There are no extra-axial fluid collections. The craniocervical junction is preserved. The major intracranial flow-voids appear patent. IMPRESSION: No evidence of acute infarct, hemorrhage, hydrocephalus, or mass. Signed: Donal Veraort Verified Date/Time: 07/28/2022 09:35:25 Reading Location: [address] Reading Room Electronically signed by: DONAL VERA M.D.on 07/28/2022 09:35 [facility]-Glucose [id number] 15:53:39 Test Item Value Reference Range Interpretation Comments POC-Glucose Meter (test 129 mg/dL 70-110 H : TE STED AT [facility] code = 1538) [address] [facility], 770 30: Tour Actor/Techni nura ID = [id number] for Yamile Valenzuelan Lab Interpretation (test Abnormal code = 34379-0) [facility] [id number] 15:53:39 Test Item Value Reference Range Interpretation Comments POC-GLUCOSE METER 129 mg/dL 70-110 H : TESTED Sofia Ba [facility] 6720 (RADHA) (test code = [place], 1538) [address]: Tour Actor/Techni nura ID = [id number] for Danika Berrios lt CT, BRAIN, WITHOUT [id number] 13:18:00CT BRAIN WO CONTRAST STEALTH PROTOCOL.CT BRAIN WO CONTRAST STEALTH PROTOCOL.Reason for Exam (Free Text) - Addiitonal information for Radiologist->G20 [facility] 1950 Sex: MFINAL REPORT CT, BRAIN, WITHOUT CONTRAST CLINICAL INDICATION: Unlisted Reason for Exam COMPARISON: None TECHNIQUE: Noncontrast axial CT imaging of the brain and skull. DOSE REDUCTION:Dose modulation, iterative reconstruction, and/or weight-based adjustment of the mA/kV was utilized to reduce the radiation dose to as low as reasonably achievable. FINDINGS:No intracranial hemorrhage, midline shift or mass effect. Midline structures are normally developed. Scattered foci of hypoattenuation are present throughout the periventricular and subcortical white matter, and, although nonspecific by imaging, statistically represent mild chronic microvascular ischemic changes in this age group. No hydrocephalus. Orbits are within normal limits. No obstructive paranasal sinus disease. IMPRESSION: No acute findings on images obtained for the purposes of surgical planning. If there is persistent clinical concern for intracranial pathology, MR examination is recommended for further characterization. Signed: Chaitanya Yates Verified Date/Time: 07/27/2022 13:18:19 Electronically signedby: CHAITANYA YATES MD on 07/27/2022 01:18 PMUrinalysis w/Microscopic + Reflex to [id number] 10:34:13 Test Item Value Reference Range Interpretation Comments Color, UA (test code Yellow = 5778-6) Clarity, UA (test Clear code = 5767-9) Specific [place], UA 1.019 1.001-1.035 (test code = 5811-5) pH, UA (test code = 6.0 5.0-8.0 5803-2) Protein, UA (test Negative Negative code = 91351-8) Glucose, UA (test Negative Negative code = 365) Ketones, UA (test Negative Negative code = 2514-8) Bilirubin, UA (test Negative Negative code = 88483-8) Blood, UA (test code Negative Negative = 56045-9) Nitrite, UA (test Negative Negative code = 5802-4) Leukocytes, UA (test Trace Negative A code = 5799-2) Urobilinogen, UA 0.2 mg/dL 0.2-1.0 (test code = 88477-6) RBC, UA (test code = 0 See_Comment [Autom ated 75732-2) message] The system which generated this result transmit leah reference range : /HPF. The reference range was not used to interpret this result as normal/abnormal . WBC, UA (test code = 1 See_Comment [Autom ated 5821-4) message] The system which generated this result transmit leah reference range : /HPF. The reference range was not used to interpret this result as normal/abnormal . Bacteria, UA (test None Seen code = 83215-3) Mucus (test code = Rare 8247-9) Squam Epithel, UA <1 See_Comment [Automate d (test code = 64509-0) messag e] The system which generated this result transmit leah reference range : /HPF. The reference range was not used to interpret this result as normal/abnormal . Crystals, Urine (test None Seen code = 40052-0) Specimen Source (test code = 2795) ROB (test code = ROB) Tour Actor ID - [auto]Tour Actor ID - tech Lab Interpretation Abnormal (test code = 23800-6) [facility] + Reflex to Culture 2022-07-27 10:34:13 Test Item Value Reference Range Interpretation Comments Color, UA (test code Yellow = 5778-6) Clarity, UA (test Clear code = 5767-9) Specific [place], UA 1.019 1.001-1.035 (test code = 5811-5) pH, UA (test code = 6.0 5.0-8.0 5803-2) Protein, UA (test Negative Negative code = 37550-5) Glucose, UA (test Negative Negative code = 365) Ketones, UA (test Negative Negative code = 2514-8) Bilirubin, UA (test Negative Negative code = 85303-1) Blood, UA (test code Negative Negative = 49309-2) Nitrite, UA (test Negative Negative code = 5802-4) Leukocytes, UA (test Trace Negative A code = 5799-2) Urobilinogen, UA 0.2 mg/dL 0.2-1.0 (test code = 77896-8) RBC, UA (test code = 0 See_Comment [Autom ated 74702-8) message] The system which generated this result transmit leah reference range : /HPF. The reference range was not used to interpret this result as normal/abnormal . WBC, UA (test code = 1 See_Comment [Autom ated 5821-4) message] The system which generated this result transmit leah reference range : /HPF. The reference range was not used to interpret this result as normal/abnormal . Bacteria, UA (test None Seen code = 42250-3) Mucus (test code = Rare 8247-9) Squam Epithel, UA <1 See_Comment [Automate d (test code = 96351-2) messag e] The system which generated this result transmit leah reference range : /HPF. The reference range was not used to interpret this result as normal/abnormal . Crystals, Urine (test None Seen code = 14332-1) Specimen Source (test code = 2795) ROB (test code = ROB) Tour Actor ID - [auto]Tour Actor ID - tech Lab Interpretation Abnormal (test code = 12269-0) [facility]/Microscopic + Reflex to Culture 2022-07-27 10:34:13 Test Item Value Reference Range Interpretation Comments Color, UA (test code Yellow = 5778-6) Clarity, UA (test Clear code = 5767-9) Specific [place], UA 1.019 1.001-1.035 (test code = 5811-5) pH, UA (test code = 6.0 5.0-8.0 5803-2) Protein, UA (test Negative Negative code = 04656-6) Glucose, UA (test Negative Negative code = 365) Ketones, UA (test Negative Negative code = 2514-8) Bilirubin, UA (test Negative Negative code = 63877-5) Blood, UA (test code Negative Negative = 42386-9) Nitrite, UA (test Negative Negative code = 5802-4) Leukocytes, UA (test Trace Negative A code = 5799-2) Urobilinogen, UA 0.2 mg/dL 0.2-1.0 (test code = 88009-5) RBC, UA (test code = 0 See_Comment [Autom ated 75554-1) message] The system which generated this result transmit leah reference range : /HPF. The reference range was not used to interpret this result as normal/abnormal . WBC, UA (test code = 1 See_Comment [Autom ated 5821-4) message] The system which generated this result transmit leah reference range : /HPF. The reference range was not used to interpret this result as normal/abnormal . Bacteria, UA (test None Seen code = 34135-6) Mucus (test code = Rare 8247-9) Squam Epithel, UA <1 See_Comment [Automate d (test code = 84205-1) messag e] The system which generated this result transmit leah reference range : /HPF. The reference range was not used to interpret this result as normal/abnormal . Crystals, Urine (test None Seen code = 81932-3) Specimen Source (test code = 2795) ROB (test code = ROB) Tour Actor ID - [auto]Tour Actor ID - tech Lab Interpretation Abnormal (test code = 17846-2) [facility]Micro[facility]opic + Reflex to Culture 2022-07-27 10:34:13 Test Item Value Reference Range Interpretation Comments Color, UA (test code Yellow = 5778-6) Clarity, UA (test Clear code = 5767-9) Specific [place], UA 1.019 1.001-1.035 (test code = 5811-5) pH, UA (test code = 6.0 5.0-8.0 5803-2) Protein, UA (test Negative Negative code = 65881-1) Glucose, UA (test Negative Negative code = 365) Ketones, UA (test Negative Negative code = 2514-8) Bilirubin, UA (test Negative Negative code = 23118-0) Blood, UA (test code Negative Negative = 63940-7) Nitrite, UA (test Negative Negative code = 5802-4) Leukocytes, UA (test Trace Negative A code = 5799-2) Urobilinogen, UA 0.2 mg/dL 0.2-1.0 (test code = 16841-9) RBC, UA (test code = 0 See_Comment [Autom ated 88178-6) message] The system which generated this result transmit leah reference range : /HPF. The reference range was not used to interpret this result as normal/abnormal . WBC, UA (test code = 1 See_Comment [Autom ated 5821-4) message] The system which generated this result transmit leah reference range : /HPF. The reference range was not used to interpret this result as normal/abnormal . Bacteria, UA (test None Seen code = 09526-2) Mucus (test code = Rare 8247-9) Squam Epithel, UA <1 See_Comment [Automate d (test code = 37756-6) messag e] The system which generated this result transmit leah reference range : /HPF. The reference range was not used to interpret this result as normal/abnormal . Crystals, Urine (test None Seen code = 17205-9) Specimen Source (test code = 2795) ROB (test code = ROB) Tour Actor ID - [auto]Tour Actor ID - tech Lab Interpretation Abnormal (test code = 44868-5) [facility]Microscopic + Reflex to Culture 2022-07-27 10:34:13 Test Item Value Reference Range Interpretation Comments Color, UA (test code Yellow = 5778-6) Clarity, UA (test Clear code = 5767-9) Specific [place], UA 1.019 1.001-1.035 (test code = 5811-5) pH, UA (test code = 6.0 5.0-8.0 5803-2) Protein, UA (test Negative Negative code = 73012-6) Glucose, UA (test Negative Negative code = 365) Ketones, UA (test Negative Negative code = 2514-8) Bilirubin, UA (test Negative Negative code = 26212-3) Blood, UA (test code Negative Negative = 41702-7) Nitrite, UA (test Negative Negative code = 5802-4) Leukocytes, UA (test Trace Negative A code = 5799-2) Urobilinogen, UA 0.2 mg/dL 0.2-1.0 (test code = 19136-3) RBC, UA (test code = 0 See_Comment [Autom ated 41779-9) message] The system which generated this result transmit leah reference range : /HPF. The reference range was not used to interpret this result as normal/abnormal . WBC, UA (test code = 1 See_Comment [Autom ated 5821-4) message] The system which generated this result transmit leah reference range : /HPF. The reference range was not used to interpret this result as normal/abnormal . Bacteria, UA (test None Seen code = 56309-5) Mucus (test code = Rare 8247-9) Squam Epithel, UA <1 See_Comment [Automate d (test code = 31905-1) messag e] The system which generated this result transmit leah reference range : /HPF. The reference range was not used to interpret this result as normal/abnormal . Crystals, Urine (test None Seen code = 96393-5) Specimen Source (test code = 2795) ROB (test code = ROB) Tour Actor ID - [auto]Tour Actor ID - tech Lab Interpretation Abnormal (test code = 97834-8) [facility]Microscopic + Reflex to Culture 2022-07-27 10:34:13 Test Item Value Reference Range Interpretation Comments Color, UA (test code Yellow = 5778-6) Clarity, UA (test Clear code = 5767-9) Specific [place], UA 1.019 1.001-1.035 (test code = 5811-5) pH, UA (test code = 6.0 5.0-8.0 5803-2) Protein, UA (test Negative Negative code = 66491-2) Glucose, UA (test Negative Negative code = 365) Ketones, UA (test Negative Negative code = 2514-8) Bilirubin, UA (test Negative Negative code = 73340-0) Blood, UA (test code Negative Negative = 54829-4) Nitrite, UA (test Negative Negative code = 5802-4) Leukocytes, UA (test Trace Negative A code = 5799-2) Urobilinogen, UA 0.2 mg/dL 0.2-1.0 (test code = 57864-6) RBC, UA (test code = 0 See_Comment [Autom ated 18092-2) message] The system which generated this result transmit leah reference range : /HPF. The reference range was not used to interpret this result as normal/abnormal . WBC, UA (test code = 1 See_Comment [Autom ated 5821-4) message] The system which generated this result transmit leah reference range : /HPF. The reference range was not used to interpret this result as normal/abnormal . Bacteria, UA (test None Seen code = 02132-9) Mucus (test code = Rare 8247-9) Squam Epithel, UA <1 See_Comment [Automate d (test code = 89860-8) messag e] The system which generated this result transmit leah reference range : /HPF. The reference range was not used to interpret this result as normal/abnormal . Crystals, Urine (test None Seen code = 54466-5) Specimen Source (test code = 2795) ROB (test code = ROB) Tour Actor ID - [auto]Tour Actor ID - tech Lab Interpretation Abnormal (test code = 68731-9) [facility]Microscopic + Reflex to Culture 2022-07-27 10:34:13 Test Item Value Reference Range Interpretation Comments Color, UA (test code Yellow = 5778-6) Clarity, UA (test Clear code = 5767-9) Specific [place], UA 1.019 1.001-1.035 (test code = 5811-5) pH, UA (test code = 6.0 5.0-8.0 5803-2) Protein, UA (test Negative Negative code = 12714-6) Glucose, UA (test Negative Negative code = 365) Ketones, UA (test Negative Negative code = 2514-8) Bilirubin, UA (test Negative Negative code = 53827-3) Blood, UA (test code Negative Negative = 06733-7) Nitrite, UA (test Negative Negative code = 5802-4) Leukocytes, UA (test Trace Negative A code = 5799-2) Urobilinogen, UA 0.2 mg/dL 0.2-1.0 (test code = 58238-5) RBC, UA (test code = 0 See_Comment [Autom ated 98216-9) message] The system which generated this result transmit leah reference range : /HPF. The reference range was not used to interpret this result as normal/abnormal . WBC, UA (test code = 1 See_Comment [Autom ated 5821-4) message] The system which generated this result transmit leah reference range : /HPF. The reference range was not used to interpret this result as normal/abnormal . Bacteria, UA (test None Seen code = 85539-3) Mucus (test code = Rare 8247-9) Squam Epithel, UA See_Comment [Automate d (test code = 96680-8) messag e] The system which generated this result transmit leah reference range : /HPF. The reference range was not used to interpret this result as normal/abnormal . Crystals, Urine (test None Seen code = 50346-9) Specimen Source (test code = 2795) ROB (test code = ROB) Tour Actor ID - [auto]Tour Actor ID - tech Lab Interpretation Abnormal (test code = 77658-5) [facility] Culture 2022-07-27 10:34:13 Test Item Value Reference Range Interpretation Comments Color, UA (test code Yellow = 5778-6) Clarity, UA (test Clear code = 5767-9) Specific [place], UA 1.019 1.001-1.035 (test code = 5811-5) pH, UA (test code = 6.0 5.0-8.0 5803-2) Protein, UA (test Negative Negative code = 01306-6) Glucose, UA (test Negative Negative code = 365) Ketones, UA (test Negative Negative code = 2514-8) Bilirubin, UA (test Negative Negative code = 26034-1) Blood, UA (test code Negative Negative = 23632-1) Nitrite, UA (test Negative Negative code = 5802-4) Leukocytes, UA (test Trace Negative A code = 5799-2) Urobilinogen, UA 0.2 mg/dL 0.2-1.0 (test code = 09762-4) RBC, UA (test code = 0 See_Comment [Autom ated 64766-8) message] The system which generated this result transmit leah reference range : /HPF. The reference range was not used to interpret this result as normal/abnormal . WBC, UA (test code = 1 See_Comment [Autom ated 5821-4) message] The system which generated this result transmit leah reference range : /HPF. The reference range was not used to interpret this result as normal/abnormal . Bacteria, UA (test None Seen code = 43493-1) Mucus (test code = Rare 8247-9) Squam Epithel, UA See_Comment [Automate d (test code = 24237-8) messag e] The system which generated this result transmit leah reference range : /HPF. The reference range was not used to interpret this result as normal/abnormal . Crystals, Urine (test None Seen code = 73945-2) Specimen Source (test code = 2795) ROB (test code = ROB) Tour Actor ID - [auto]Tour Actor ID - tech Lab Interpretation Abnormal (test code = 68035-8) [facility] Culture 2022-07-27 10:34:13 Test Item Value Reference Range Interpretation Comments Color, UA (test code Yellow = 5778-6) Clarity, UA (test Clear code = 5767-9) Specific [place], UA 1.019 1.001-1.035 (test code = 5811-5) pH, UA (test code = 6.0 5.0-8.0 5803-2) Protein, UA (test Negative Negative code = 74000-0) Glucose, UA (test Negative Negative code = 365) Ketones, UA (test Negative Negative code = 2514-8) Bilirubin, UA (test Negative Negative code = 23203-5) Blood, UA (test code Negative Negative = 27101-6) Nitrite, UA (test Negative Negative code = 5802-4) Leukocytes, UA (test Trace Negative A code = 5799-2) Urobilinogen, UA 0.2 mg/dL 0.2-1.0 (test code = 05604-2) RBC, UA (test code = 0 See_Comment [Autom ated 32190-3) message] The system which generated this result transmit leah reference range : /HPF. The reference range was not used to interpret this result as normal/abnormal . WBC, UA (test code = 1 See_Comment [Autom ated 5821-4) message] The system which generated this result transmit leah reference range : /HPF. The reference range was not used to interpret this result as normal/abnormal . Bacteria, UA (test None Seen code = 48863-5) Mucus (test code = Rare 8247-9) Squam Epithel, UA <1 See_Comment [Automate d (test code = 98516-8) messag e] The system which generated this result transmit leah reference range : /HPF. The reference range was not used to interpret this result as normal/abnormal . Crystals, Urine (test None Seen code = 31041-8) Specimen Source (test code = 2795) ROB (test code = ROB) Tour Actor ID - [auto]Tour Actor ID - tech Lab Interpretation Abnormal (test code = 56772-0) [facility] UR[facility] [id number] 10:34:13 Test Item Value Reference Range Interpretation Comments COLOR (BEAKER) (test code = 470) Yellow CLARITY (BEAKER) (test code = 469) Clear SPECIFIC GRAVITY UA (BEAKER) (test 1.019 1.001-1.035 code = 468) PH UA (BEAKER) (test code = 467) 6.0 5.0-8.0 PROTEIN UA (BEAKER) (test code = Negative Negative 464) GLUCOSE UA (BEAKER) (test code = Negative Negative 365) KETONES UA (BEAKER) (test code = Negative Negative 371) BILIRUBIN UA (BEAKER) (test code = Negative Negative 462) BLOOD UA (BEAKER) (test code = 461) Negative Negative NITRITE UA (BEAKER) (test code = Negative Negative 465) LEUKOCYTE ESTERASE UA (BEAKER) Trace Negative A (test code = 466) UROBILINOGEN UA (BEAKER) (test code 0.2 mg/dL 0.2-1.0 = 463) RBC UA (BEAKER) (test code = 519) 0 /HPF WBC UA (BEAKER) (test code = 520) 1 /HPF BACTERIA (BEAKER) (test code = 517) None Seen MUCUS (BEAKER) (test code = 1574) Rare SQUAMOUS EPITHELIAL (BEAKER) (test < /HPF code = 516) CRYSTALS, URINE (BEAKER) (test code None Seen = 1521) SOURCE(BEAKER) (test code = 2795) Tour Actor ID - [auto]Tour Actor ID - [id number] 10:25:57 Test Item Value Reference Range Interpretation Comments PARTIAL THROMBOPLASTIN TIME 29.7 seconds 22.5-36.0 (BEAKER) (test code = 760) PROTHROMBIN TIME/[id number] 10:25:18 Test Item Value Reference Range Interpretation Comments PROTIME (BEAKER) 14.0 seconds 11.9-14.2 (test code = 759) INR (BEAKER) (test 1.10 See_Comment [Automat ed message] code = 370) The system [employer] generated this result transmitted ref erence range: <=5.90. The reference range was not used to int erpret this result as normal/abnormal . RECOMMENDED COUMADIN/WARFARIN INR THERAPY RANGESSTANDARD DOSE: 2.0 - 3.0 Includes: PROPHYLAXIS for venous thrombosis, systemic embolization; TREATMENT for venous thrombosis and/or pulmonary embolus.HIGH RISK: Target INR is 2.5-3.5 for patients with mechanical heart valves.BASIC METABOLIC [id number] 10:16:14 Test Item Value Reference Range Interpretation Comments SODIUM (BEAKER) 137 meq/L 136-145 (test code = 381) POTASSIUM 4.1 meq/L 3.5-5.1 (BEAKER) (test code = 379) CHLORIDE (BEAKER) 106 meq/L 98-107 (test code = 382) CO2 (BEAKER) 24 meq/L 22-29 (test code = 355) BLOOD UREA 15 mg/dL 7-21 NITROGEN (BEAKER) (test code = 354) CREATININE 0.79 mg/dL 0.57-1.25 (BEAKER) (test code = 358) GLUCOSE RANDOM 118 mg/dL 70-105 H (BEAKER) (test code = 652) CALCIUM (BEAKER) 9.0 mg/dL 8.4-10.2 (test code = 697) EGFR (BEAKER) 95 Interpretatio n of eGFR (test code = mL/min/1.73 values Stage De scription 1092) sq m Result G1 Zoila l or high >=90 G2 Mildly decreased 60-89 G3a Mildl y to moderately 45-5 9 G3b Moderately to s everely 30-44 G4 Severl y decreased 15-29 G5 Kidney failure <15Reported eGF R is based on the CKD-EPI 202 equation that d oes not use a race coefficientEsti mated GFR is not as accur ate as Creatinine Tammy barbosa in predicting glom erular filtration rate . Estimated GFR is not appl icable for dialysis patien ts Tour Actor ID - EMIR MCBC W/PLT COUNT & AUTO [id number] 10:07:14 Test Item Value Reference Range Interpretation Comments WHITE BLOOD CELL COUNT (BEAKER) 6.7 K/ L 3.5-10.5 (test code = 775) RED BLOOD CELL COUNT (BEAKER) 4.15 M/ L 4.63-6.08 L (test code = 761) HEMOGLOBIN (BEAKER) (test code = 13.5 GM/DL 13.7-17.5 L 410) HEMATOCRIT (BEAKER) (test code = 39.1 % 40.1-51.0 L 411) MEAN CORPUSCULAR VOLUME (BEAKER) 94.2 fL 79.0-92.2 H (test code = 753) MEAN CORPUSCULAR HEMOGLOBIN 32.5 pg 25.7-32.2 H (BEAKER) (test code = 751) MEAN CORPUSCULAR HEMOGLOBIN CONC 34.5 GM/DL 32.3-36.5 (BEAKER) (test code = 752) RED CELL DISTRIBUTION WIDTH 12.2 % 11.6-14.4 (BEAKER) (test code = 412) PLATELET COUNT (BEAKER) (test 242 K/CU MM 150-450 code = 756) MEAN PLATELET VOLUME (BEAKER) 10.0 fL 9.4-12.4 (test code = 754) NUCLEATED RED BLOOD CELLS 0 /100 WBC 0-0 (BEAKER) (test code = 413) NEUTROPHILS RELATIVE PERCENT 51 % (BEAKER) (test code = 429) LYMPHOCYTES RELATIVE PERCENT 38 % (BEAKER) (test code = 430) MONOCYTES RELATIVE PERCENT 7 % (BEAKER) (test code = 431) EOSINOPHILS RELATIVE PERCENT 4 % (BEAKER) (test code = 432) BASOPHILS RELATIVE PERCENT 0 % (BEAKER) (test code = 437) NEUTROPHILS ABSOLUTE COUNT 3.38 K/ L 1.78-5.38 (BEAKER) (test code = 670) LYMPHOCYTES ABSOLUTE COUNT 2.52 K/ L 1.32-3.57 (BEAKER) (test code = 414) MONOCYTES ABSOLUTE COUNT (BEAKER) 0.49 K/ L 0.30-0.82 (test code = 415) EOSINOPHILS ABSOLUTE COUNT 0.26 K/ L 0.04-0.54 (BEAKER) (test code = 416) BASOPHILS ABSOLUTE COUNT (BEAKER) 0.02 K/ L 0.01-0.08 (test code = 417) IMMATURE GRANULOCYTES-RELATIVE 0 % 0-1 PERCENT (BEAKER) (test code = 2801) RAD, CHEST, 2 [id number] 09:55:00Reason for exam:->[facility]op testing [facility] 1950 Sex: MFINAL REPORT HISTORY: Preoperative testing COMPARISON: None FINDINGS: The lungs are clear. No pleural effusions or pneumothorax. The heart shadow is normal in size. The thoracic aortais mildly tortuous. Degenerative and scoliotic changes are present in the spine. IMPRESSION: No evidence of acute cardiopulmonary disease. Signed: Cassi Perez MDReport Verified Date/Time: 07/27/2022 09:55:50 XR SHOULDER 2+ VW [id number] 16:01:50No sign of fracture or dislocation he does have some osteophytes at the proximal humerus insertion of the rotator cuff [facility]
[2023-05-18] MEDS ORDERED: HYDROCODONE/APAP 7.5/325 MG TAB ONE (21:07)
--- NOTE | 2023-05-18 21:19 | RAD REPORT ---
EXAM DESCRIPTION: RAD - Shoulder Right 2 View - 05/18/2023 9:13 pm CLINICAL HISTORY: DEFORMITY COMPARISON: No comparisons FINDINGS: Subcoracoid anterior dislocation of the humeral head is suspected. No fracture seen.
[2023-05-18] MEDS ORDERED: propofoL 200 MG/20 ML VIAL IV ONE (23:28)
[2023-05-19] MEDS ORDERED: MORPHINE 2 MG/ML SYR ONE (00:02)
[2023-05-19] MEDS ORDERED: ONDANSETRON 4 MG/2 ML VIAL ONE (00:03)
[2023-05-19] MEDS ORDERED: NA CHLORIDE 0.9% 500 ML ONE (00:03)
--- NOTE | 2023-05-19 00:23 | EDPHYS ---
Physician Documentation [facility] Name: Alfonso Linares Age: 73 yrs Sex: Male : 1950 Arrival Date: 05/18/2023 Time: 19:54 Bed 4 Private MD: ED Physician Tony Andrew HPI: 05/18 23:23 This 73 yrs old Male presents to ER via Ambulatory with complaints of Shoulder sb4 Pain. 23:23 The patient or guardian complains of an injury. right shoulder. Context: The problem sb4 was sustained at home, resulted from a fall, from a standing position, The patient experiences decreased range of motion, when attempts to raise arm. Onset: The symptoms/episode began/occurred just prior to arrival. Modifying factors: the symptoms are alleviated by nothing. The symptoms are aggravated by lifting weight, movement, rotation of arm. The patient has not experienced similar symptoms in the past. 73 year old male with history of DM and parkinson with DBS in place presents s/p fall. He was at home when he tripped and fell into his tv stand. He directly hit his right shoulder. obvious deformity noted. neurovascularly intact. Historical: - Allergies: 20:50 PCN; lg3 - Home Meds: 20:50 aspirin 81 mg Oral capsule once [Active]; Metformin Oral [Active]; gabapentin oral lg3 [Active]; montelukast oral [Active]; rosuvastatin oral [Active]; Omeprazole Oral [Active]; fluticasone propionate nasal [Active]; Rytary oral [Active]; - PMHx: 20:50 Diabetes mellitus; laryngospasms; lg3 20:56 Parkinson's disease; lg3 - PSHx: 20:50 DBS; cyst removal; lg3 - Immunization history:: Adult Immunizations up to date, Client reports receiving the 2nd dose of the Covid vaccine. - Social history:: Smoking status: Patient denies any tobacco usage or history of. Patient/guardian denies using alcohol, street drugs. ROS: 23:23 Constitutional: Negative for fever, chills, and weight loss. sb4 23:23 MS/extremity: Positive for injury or acute deformity, decreased range of motion, deformity, pain, of the anterior aspect of right shoulder. 23:23 Neuro: Negative for numbness, weakness. 23:23 All other systems are negative. Exam: 23:23 Constitutional: This is a well developed, well nourished patient who is awake, alert, sb4 and in no acute distress. Head/Face: Normocephalic, atraumatic. Eyes: Extra-ocular motions intact. Periorbital areas with no swelling, redness, or edema. Back: No spinal tenderness. No costovertebral tenderness. Full range of motion. Skin: Warm, dry with normal turgor. Normal color with no rashes, no lesions, and no evidence of cellulitis. Neuro: Awake and alert, GCS 15, oriented to person, place, time, and situation. Cranial nerves II-XII grossly intact. Motor strength 5/5 in all extremities. Sensory grossly intact. Cerebellar exam normal. Normal gait. 23:23 Musculoskeletal/extremity: ROM: limited active range of motion, limited passive range of motion, limited active range of motion due to pain, limited passive range of motion due to pain, Circulation is intact in all extremities. Sensation intact. Vital Signs: 20:47 BP 155 / 84; Pulse 67; Resp 17 S; Temp 98.6(O); Pulse Ox 95% on R/A; Weight 74.84 kg lg3 (R); Height 5 ft. 7 in. (R); 23:46 BP 155 / 77; Pulse 59; Resp 18; Pulse Ox 98% on R/A; mb9 05/19 00:38 BP 143 / 84; Pulse 70; Resp 18; Temp 98; Pulse Ox 98% on R/A; rv 05/18 20:47 Body Mass Index 25.84 (74.84 kg, 170.18 cm) lg3 [place] Coma Score: 00:38 Eye Response: spontaneous(4). Motor Response: obeys commands(6). Verbal Response: rv oriented(5). Total: 15. Procedures: 00:17 Reduction: of the right shoulder, using traction, manipulation, Immobilized with rn shoulder immobilizer. Patient tolerated well. Post reduction film - reveals normal alignment. MDM: 05/18 20:17 Patient medically screened. sb4 23:23 Differential diagnosis: Anterior dislocation with fracture, Anterior dislocation sb4 without fracture, Posterior dislocation with fracture, Posterior dislocation without fracture, humeral head fracture, glenoid fracture, DJD, tendonitis. 05/19 00:21 Data reviewed: vital signs, nurses notes, radiologic studies, I have discussed the sb4 patient's presentation/case with the attending Emergency Department Physician; and as a result, I will discharge patient. Independent interpretation of the following test(s) in the Emergency Department X-Ray: My interpretation is my interpretation of the initial xray images of the right shoulder are "acute anterior dislocation" . Historians other than the Patient: Spouse/Significant Other: . Care significantly affected by the following chronic conditions: Diabetes. Counseling: I had a detailed discussion with the patient and/or guardian regarding: the historical points, exam findings, and any diagnostic results supporting the discharge/admit diagnosis, radiology results, the need for outpatient follow up, a orthopedic surgeon, to return to the emergency department if symptoms worsen or persist or if there are any questions or concerns that arise at home. 05/18 20:50 Order name: Shoulder Right (2 View) XRAY; Complete Time: 21:22 sb4 05/19 00:03 Order name: Shoulder Right (2 View) XRAY rv1 05/18 22:34 Order name: [facility]. Order: please obtain consent for conscious sedation; Complete Time: sb4 23:15 Administered Medications: 05/18 20:59 Drug: Hydrocodone-Acetaminophen PO (7.5 mg-325 mg) 1 tabs Route: PO; lg3 22:27 Follow up: Response: No adverse reaction; Pain is decreased kd3 23:09 CANCELLED (Physician Discretion): Etomidate IVP 20 mg IVP once; hold for sedation sb4 23:57 Drug: morphine IVP or IV 1 mg Route: IVP; Infused Over: 2 mins; Site: left antecubital; mb9 05/19 00:14 Follow up: Response: No adverse reaction 9 05/18 23:57 Drug: Ondansetron IVP 4 mg Route: IVP; Site: left antecubital; mb9 05/19 00:14 Follow up: Response: No adverse reaction 9 Disposition: 01:16 Co-signature as Attending Physician, Tony Andrew MD I reviewed the patient's care rn provided by the Advanced Practice Provider and agree with the diagnosis and treatment plan. Disposition Summary: 05/19/23 00:23 Discharge Ordered Location: Home sb4 Problem: new sb4 Symptoms: have improved sb4 Condition: Stable sb4 Diagnosis - Other dislocation of right shoulder joint sb4 Followup: sb4 - With: - When: 1 week - Reason: Recheck today's complaints, Continuance of care, Re-evaluation by your physician Discharge Instructions: - Discharge Summary Sheet sb4 - How to Use a Shoulder Immobilizer sb4 - Shoulder Dislocation, Uqnp-to-Lsrr sb4 Forms: - Medication Reconciliation Form sb4 - Thank You Letter sb4 - Antibiotic Education sb4 - Prescription Opioid Use sb4 - Patient Portal Instructions sb4 Prescriptions: - Tramadol 50 mg Oral Tablet - take 1 tablet by ORAL route every 8 hours as needed; 12 tablet; Refills: 0, sb4 Product Selection Permitted Signatures: Dispatcher [employer] EDTony Patel MD MD rn Gibson, Lacie, RN RN lg3 Nikki Najera PA-C PA-C sb4 Airam Hancock RN RN mb9 Jessie Chase RN kd3 Corrections: (The following items were deleted from the chart) 05/18 23:09 23:03 Etomidate IVP 20 mg IVP once; hold for sedation ordered. sb4 sb4
--- NOTE | 2023-05-19 00:23 | ER ---
Nurse's Notes [facility] Name: Alfonso Linares Age: 73 yrs Sex: Male : 1950 Arrival Date: 05/18/2023 Time: 19:54 Bed 4 Private MD: Diagnosis: Other dislocation of right shoulder joint Presentation: 05/18 20:47 Chief complaint: Patient states: fell while walking and hit the TV stand with my right lg3 shoulder. i cant move it. Coronavirus screen: Client denies travel out of the [place] in the last 14 days. At this time, the client does not indicate any symptoms associated with coronavirus-19. Ebola Screen: No symptoms or risks identified at this time. Initial Sepsis Screen: Does the patient meet any 2 criteria? No. Patient's initial sepsis screen is negative. Does the patient have a suspected source of infection? No. Patient's initial sepsis screen is negative. Risk Assessment: Do you want to hurt yourself or someone else? Patient reports no desire to harm self or others. Onset of symptoms was May 18, 2023. 20:47 Method Of Arrival: Ambulatory lg3 20:47 Acuity: FRED 4 lg3 Triage Assessment: 20:50 General: Appears in no apparent distress. uncomfortable, Behavior is calm, cooperative. lg3 Pain: Complains of pain in anterior aspect of right shoulder and posterior aspect of right shoulder. EENT: No deficits noted. No signs and/or symptoms were reported regarding the EENT system. Neuro: No deficits noted. Esteban Agitation-Sedation Scale (RASS): 0 - Alert and Calm Level of Consciousness is awake, alert, obeys commands, Oriented to person, place, time, situation. Cardiovascular: No deficits noted. Denies chest pain, shortness of breath, Capillary refill < 3 seconds Clubbing of nail beds is absent JVD is absent Patient's skin is warm and dry. Respiratory: No deficits noted. Airway is patent Respiratory effort is even, unlabored, Respiratory pattern is regular, symmetrical. GI: No deficits noted. No signs and/or symptoms were reported involving the gastrointestinal system. : No deficits noted. No signs and/or symptoms were reported regarding the genitourinary system. Derm: No deficits noted. No signs and/or symptoms reported regarding the dermatologic system. Musculoskeletal: Circulation, motion, and sensation intact. Range of motion: limited in right shoulder Reports pain in anterior aspect of right shoulder and posterior aspect of right shoulder. Historical: - Allergies: 20:50 PCN; lg3 - Home Meds: 20:50 aspirin 81 mg Oral capsule once [Active]; Metformin Oral [Active]; gabapentin oral lg3 [Active]; montelukast oral [Active]; rosuvastatin oral [Active]; Omeprazole Oral [Active]; fluticasone propionate nasal [Active]; Rytary oral [Active]; - PMHx: 20:50 Diabetes mellitus; laryngospasms; lg3 20:56 Parkinson's disease; lg3 - PSHx: 20:50 DBS; cyst removal; lg3 - Immunization history:: Adult Immunizations up to date, Client reports receiving the 2nd dose of the Covid vaccine. - Social history:: Smoking status: Patient denies any tobacco usage or history of. Patient/guardian denies using alcohol, street drugs. Screenin:29 [facility] ED Fall Risk Assessment (Adult) History of falling in the last 3 months, kd3 including since admission No falls in past 3 months (0 pts) Confusion or Disorientation No (0 pts) Intoxicated or Sedated No (0 pts) Impaired Gait No (0 pts) Mobility Assist Device Used No (0 pt) Altered Elimination No (0 pt) Score/Fall Risk Level 0 - 2 = Low Risk Maintained a safe environment. Abuse screen: Denies threats or abuse. Denies injuries from another. Nutritional screening: No deficits noted. Tuberculosis screening: No symptoms or risk factors identified. Assessment: 22:28 General: Appears uncomfortable, Behavior is calm, cooperative. Pain: Complains of pain kd3 in right shoulder. Neuro: Level of Consciousness is awake, alert, obeys commands, Oriented to person, place, time, situation. Cardiovascular: Patient's skin is warm and dry. Respiratory: Airway is patent Trachea midline Respiratory effort is even, unlabored, Respiratory pattern is regular, symmetrical. 23:16 Reassessment: consent for conscious sedation signed by ERP and pt. mb9 Vital Signs: 20:47 BP 155 / 84; Pulse 67; Resp 17 S; Temp 98.6(O); Pulse Ox 95% on R/A; Weight 74.84 kg lg3 (R); Height 5 ft. 7 in. (R); 23:46 BP 155 / 77; Pulse 59; Resp 18; Pulse Ox 98% on R/A; mb9 05/19 00:38 BP 143 / 84; Pulse 70; Resp 18; Temp 98; Pulse Ox 98% on R/A; rv 05/18 20:47 Body Mass Index 25.84 (74.84 kg, 170.18 cm) lg3 [place] Coma Score: 00:38 Eye Response: spontaneous(4). Motor Response: obeys commands(6). Verbal Response: rv oriented(5). Total: 15. ED Course: 05/18 19:57 Patient arrived in ED. ag3 20:17 Nikki Najera PA-C is PHCP. sb4 20:17 Tony Andrew MD is Attending Physician. sb4 20:50 Triage completed. lg3 20:50 Arm band placed on right wrist. lg3 21:15 Shoulder Right (2 View) XRAY In Process Unspecified. EDMS 22:27 Jessie Chase, RN is Primary Nurse. kd3 22:29 Patient has correct armband on for positive identification. kd3 23:16 Inserted saline lock: 20 gauge in left antecubital area, using aseptic technique. mb9 23:56 Assist provider with reduction of right shoulder using manipulation, Set up for rv procedure. Performed by Tony Andrew MD Immobilized with shoulder immobilizer Patient tolerated well. 05/19 00:23 Chas Baker MD is Referral Physician. sb4 00:30 Shoulder Right (2 View) XRAY In Process Unspecified. EDMS 00:40 Provided Education on: Procedure Consent. rv 00:40 IV discontinued, intact, bleeding controlled. rv Administered Medications: 05/18 20:59 Drug: Hydrocodone-Acetaminophen PO (7.5 mg-325 mg) 1 tabs Route: PO; lg3 22:27 Follow up: Response: No adverse reaction; Pain is decreased kd3 23:09 CANCELLED (Physician Discretion): Etomidate IVP 20 mg IVP once; hold for sedation sb4 23:57 Drug: morphine IVP or IV 1 mg Route: IVP; Infused Over: 2 mins; Site: left antecubital; mb9 05/19 00:14 Follow up: Response: No adverse reaction mb9 05/18 23:57 Drug: Ondansetron IVP 4 mg Route: IVP; Site: left antecubital; mb9 05/19 00:14 Follow up: Response: No adverse reaction mb9 Medication: 05/18 22:29 VIS not applicable for this client. kd3 Outcome: 05/19 00:23 Discharge ordered by . sb4 00:40 Discharged to home ambulatory, with family. rv 00:40 Condition: improved 00:40 Discharge instructions given to patient, Instructed on discharge instructions, follow up and referral plans. medication usage, Demonstrated understanding of instructions, follow-up care, medications, Prescriptions given X 1. 00:41 Patient left the ED. rv Signatures: Dispatcher [employer] EDMS Jorge Jean RN RN rv Kayce Mcbride3 Fabiana Beht RN RN [id number] Jessie Chase RN RN kd3 Nikki Najera, PA-C PA-C sb4 Airam Hancock RN RN mb9
[2023-05-19 04:01] VITALS: O2SAT 98
[2023-05-19 04:02] VITALS: BP 143/84; TEMP 98
--- NOTE | 2023-05-19 19:21 | RAD REPORT ---
EXAM DESCRIPTION: RAD - Shoulder Right 2 View - 05/19/2023 12:28 am CLINICAL HISTORY: The patient is 73 years old and is Male; post reduction Shoulder Right 2 View TECHNIQUE: Two or more views of the right shoulder. COMPARISON: No relevant prior studies available. FINDINGS: BONES/JOINTS: Minimal acromioclavicular joint space narrowing is present. The humeral he ad is located. No acute fracture. No dislocation. SOFT TISSUES: Unremarkable. IMPRESSION: No evidence of dislocation. Electronically signed by: Lizzy Burleson MD 05/19/2023 1:00 AM CDT Due to temporary technical issues with the PACS/Fluency reporting system, reports are being signed by the in house radiologists without review as a courtesy to insure prompt reporting. The interpreting radiologist is fully responsible for the content of the report.
== END 2023-05-19 00:41 | disposition home or self-care (01) ==
LOC: ER 19:54
PROC: 0RSJXZZ Reposition Right Shoulder Joint, External Approach (ICD-10-PCS; principal; 2023-05-19)
DX: S43.084A Other dislocation of right shoulder joint, initial encounter (principal); E11.9 Type 2 diabetes mellitus without complications; G20 Parkinson's disease; Z88.0 Allergy status to penicillin
CPT/HCPCS: 73030 ×2; 96375; 96374; 99285; 23650; J2704